=== PATIENT | female | born 1955 | race Caucasian/White ===

== ENCOUNTER 2016-08-11 04:25 | Emergency (ER) ==
[2016-08-11] MEDS ORDERED: DUONEB NEB STA (04:39)
[2016-08-11 04:40] VITALS: BP 110/67; TEMP 98.3; BMI 21.1
--- NOTE | 2016-08-11 04:48 | ED.PDOC ---
General ED Provider: Dr. MARLEN FLOOD Chief Complaint: Cough Stated Complaint: Productive cough of green phlegm for 4 days. Chills. Temperature 98.2 at home. States, "I just feel bad like I have something terrible". Time Seen by Physician: 04:46 Mode of Arrival: Walk-In Information Source: Patient Exam Limitations: No limitations [facility] Nursing and Triage Documentation Reviewed and Agree: Yes Respiratory Complaint Exam - Respiratory Complaint/Exam Onset/Duration: 2 days Symptoms Are: Still present Timing: Constant Initial Severity: Moderate Current Severity: Moderate Location: Chest Character: Reports: Non-productive cough Aggravating: Reports: URI, Passive smoke exposure (smoking ), Weather Alleviating: Reports: None Associated Signs and Symptoms: Reports: URI. Denies: Rapid breathing, Dyspnea, Fever, Chills, Chest pain, Pleuritic chest pain, Wheezing, Hemoptysis, Dizziness , Calf pain, Calf swelling, Edema, Nasal congestion, Hoarseness, Sinus discomfort, Vomiting, Sore throat, Weight loss, Decreased oral intake, Increased thirst, Increased appetite, Increased urination Cardiac Risk Factors: Reports: Smoking Home Oxygen Use: No Recent Stress Test: No Recent Echo/LV Function: No Current Antibiotic Use: No Current Asthma Medication Use: No Respiratory Distress: None Inadequate Respiratory Effort: No Dysphagia Present: No Stridor Present: No JVD Present: No Accessory Muscle Use: No Diminished Breath Sounds: No Sinus Tenderness: None Grunting Respirations: No Kussmaul Respirations: No Differential Diagnoses: URI Review of Systems - Review Of Systems Constitutional: Reports: No symptoms Eyes: Reports: No symptoms Ears, Nose, Mouth, Throat: Reports: No symptoms Respiratory: Reports: Cough, Short of air Cardiac: Reports: No symptoms GI: Reports: No symptoms : Reports: No symptoms Musculoskeletal: Reports: No symptoms Skin: Reports: No symptoms Neurological: Reports: Anxiety Endocrine: Reports: No symptoms Hematologic/Lymphatic: Reports: No symptoms All Other Systems: Reviewed and Negative Past Medical History - Past Medical History Endocrine: Reports: Dyslipidemia Cardiovascular: Reports: None Respiratory: Reports: None Hematological: Reports: Other (LUPUS) Gastrointestinal: Reports: GERD Genitourinary: Reports: None Neuro/Psych: Reports: Anxiety Musculoskeletal: Reports: None Cancer: Reports: None Last Menstrual Period: 20 years ago Other Pertinent Past Medical History: 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 Sx chol gerd anx lupus - Surgical History General Surgical History: Reports: Unknown - Family History Family History: Reports: Unknown - Social History Smoking Status: Current some day smoker (1/2 ppd ), Heavy tobacco smoker Hx Substance Use: No Alcohol Screening: None - Immunizations Tetanus Shot up to Date: Yes Physical Exam - Physical Exam Appearance: Ill-appearing, Thin Ill-appearing: Mild Eyes: GONZALES, EOMI, Conjunctiva clear ENT: Ears normal, Nose normal, Oropharynx normal Neck: Supple Respiratory: Airway patent, Breath sounds clear, Breath sounds equal, Breath sounds diminished, Respirations nonlabored Cardiovascular: RRR, Pulses normal, No rub, No murmur GI/: Soft, Nontender, No masses, Bowel sounds normal, No Organomegaly Musculoskeletal: Normal strength, ROM intact, No edema, No calf tenderness Skin: Warm, Dry, Normal color Neurological: Sensation intact, Motor intact, Reflexes intact, Cranial nerves intact, Alert, Oriented Psychiatric: Affect appropriate, Mood appropriate Interpretation - Radiology Interpretation Radiology Interpretation By: ED Physician Radiology Results: Negative Exam Interpreted: CXR - Electrician Rectifier Maintenance Rate: Normal Rhythm: Sinus Ectopy: None - EKG Interpretation Time of EKG #1: 05:03 Rate: Normal Rhythm: Sinus Ectopy: None Reserve: NL ST Segment: Normal Critical Care Note - Critical Care Note Total Time (mins): 0 Course - Course Orders, Labs, Meds: Orders Category Date Time Status EKG-(ED ONLY) Stat CARDIO 08/11/16 04:39 Ordered NEBULIZER TREATMENT Stat CARDIO 08/11/16 04:41 Ordered BLOOD CULTURE Stat LAB 08/11/16 04:39 Ordered CBC W/ AUTO DIFF Stat LAB 08/11/16 04:39 Ordered COMPREHENSIVE METABOLIC PANEL Stat LAB 08/11/16 04:39 Ordered LACTIC ACID Stat LAB 08/11/16 04:44 Ordered PROCALCITONIN Stat LAB 08/11/16 Ordered PT WITH INR Stat LAB 08/11/16 04:59 Ordered TROPONIN I Stat LAB 08/11/16 04:39 Ordered Azithromycin [Zithromax] MEDS 08/11/16 05:06 Stat 500 mg PO ONCE STA Hydrocortisone Sod Succ/Pf [Solu-Cortef 100 mg] MEDS 08/11/16 05:05 Stat 100 mg IM ONCE STA Ipratropium/Albuterol Neb [Duoneb] MEDS 08/11/16 04:39 Discontinued 1 vial NEB ONCE STA CHEST, 2 VIEWS PA & LAT Stat RADS 08/11/16 04:39 Taken Medications Discontinued Medications Generic Name Dose Route Start Last Admin Trade Name Sal PRN Reason Stop Dose Admin Albuterol/Ipratropium 1 vial 08/11/16 04:39 08/11/16 05:01 Duoneb NEB 08/11/16 04:40 1 vial ONCE STA Administration Hydrocortisone Sodium Succinate 100 mg 08/11/16 05:05 Solu-Cortef 100 Mg IM 08/11/16 05:06 ONCE STA Vital Signs: Temp Pulse Resp BP Pulse Ox 08/11/16 04:27 98.3 F 104 H 20 110/67 96 Departure - Departure Time of Disposition: 05:10 Disposition: HOME SELF-CARE Discharge Problem: Acute bronchitis Qualifiers: Bronchitis organism: other organism Qualifier Code: (J20.8) Acute bronchitis due to other specified organisms Instructions: Acute Bronchitis (ED) Condition: Fair Pt referred to PMD for follow-up: Yes Additional Instructions: Quit smoking Take medications as prescribed Please call your Family Physician as soon as possible to schedule a follow-up appointment. Prescriptions: Albuterol Sulfate [Proair Hfa] 2 puff IH Q6H PRN #1 puff PRN Reason: shortness of breath or wheezin Azithromycin [Zithromax] 250 mg PO DIRECTED #6 tablet Methylprednisolone [Medrol Dosepak] 4 mg PO DIRECTED #1 pkg Allergies/Adverse Reactions: Allergies codeine Allergy (Severe, Verified 08/11/16 04:39) sick to stomach meperidine HCl [From Demerol] Allergy (Severe, Verified 08/11/16 04:39) pt unsure of problems Sulfa (Sulfonamide Antibiotics) Allergy (Severe, Verified 08/11/16 04:39) itch and rash metoclopramide HCl [From Reglan] Allergy (Mild, Verified 08/11/16 04:39) made stomach worse, didn't help Penicillins Adverse Reaction (Verified 08/11/16 04:39) Home Medications: Ambulatory Orders Folic Acid 1 mg PO DAILY 11/27/15 [place]-3 Acid Ethyl Esters [Lovaza] 1 cap PO DAILY 11/27/15 Oxycodone HCl [Oxycontin] 10 mg PO Q12HR 11/27/15 Pravastatin Sodium [Pravachol] 20 mg PO DAILY 11/27/15 Tizanidine HCl [Zanaflex] 8 mg PO BEDTIME 11/27/15 Gabapentin 300 mg PO d 02/05/16 Gabapentin 600 mg PO BEDTIME 02/05/16 Ramipril 5 mg PO DAILY 02/07/16 Sertraline HCl [Zoloft] 100 mg PO DAILY #30 03/12/16 Oxycodone HCl/Acetaminophen [Percocet 10-325 Mg Tablet] 1 each PO QID 06/04/16 Albuterol Sulfate [Proair Hfa] 2 puff IH Q6H PRN #1 puff 08/11/16 Azithromycin [Zithromax] 250 mg PO DIRECTED #6 tablet 08/11/16 Methylprednisolone [Medrol Dosepak] 4 mg PO DIRECTED #1 pkg 08/11/16 Disposition Discussed With: Patient
[2016-08-11] MEDS ORDERED: SOLU-CORTEF 100 MG IM STA (05:05)
[2016-08-11] MEDS ORDERED: ZITHROMAX PO STA (05:06)
--- NOTE | 2016-08-11 07:22 | DI ---
EXAM: Two views of the chest. History: Cough. Comparison: Chest radiograph 08/24/2011 Findings: Heart size is normal. Atherosclerotic vascular calcifications. No focal consolidation. No appreciable pleural fluid and no pneumothorax. No acute osseous abnormalities. Impression: No acute cardiopulmonary process.
== END 2016-08-11 05:41 | disposition home or self-care (01) ==
LOC: ED 04:25
DX: J20.9 Acute bronchitis, unspecified (principal); F17.210 Nicotine dependence, cigarettes, uncomplicated; Z79.899 Other long term (current) drug therapy
CPT/HCPCS: 93005; 93010; 94640; 99283

== ENCOUNTER 2016-08-27 09:12 | Outpatient (CLI) | payer OTHER ==
[2016-08-27 13:34] LABS: PROTHROMBIN TIME 15.3 SEC (9.3-11.0)
[2016-08-27 13:40] LABS: BASOPHILS % (AUTO) 0.7 % (0.0-3.0); EOSINOPHILS # (AUTO) 0.1 K/ul (0.0-0.7); EOSINOPHILS % (AUTO) 1.4 % (0.0-7.0); HEMATOCRIT 36.4 % (37.0-47.0); HEMOGLOBIN 12.1 g/dl (12.0-16.0); LYMPHOCYTES # (AUTO) 1.4 K/uL (0.60-3.4); MEAN CORPUSCULAR HEMOGLOBIN 30.3 pg (27.0-31.0); MEAN CORPUSCULAR HGB CONC 33.2 (31.8-35.4); MONOCYTES # (AUTO) 0.4 K/uL (0.4-2.0); MONOCYTES % (AUTO) 8.6 (0-10); NEUTROPHILS # (AUTO) 2.5 K/ul (2.0-6.9); NEUTROPHILS % (AUTO) 57.3; PLATELET COUNT 144 10^3/uL (140-440); WHITE BLOOD COUNT 4.41 K/ul (4.6-10.2)
== END 2016-08-27 09:13 | disposition home or self-care (01) ==
LOC: LAB 09:12
PROVIDERS: ATTEND Nurse Practitioner Family
DX: D70.9 Neutropenia, unspecified (principal); E05.90 Thyrotoxicosis, unspecified without thyrotoxic crisis or storm; Z86.718 Personal history of other venous thrombosis and embolism
CPT/HCPCS: 36415; 84443; 85025; 85610

== ENCOUNTER 2016-09-29 04:08 | Emergency (ER) ==
[2016-09-29 04:32] VITALS: BP 98/63; TEMP 99.1; BMI 21.3
--- NOTE | 2016-09-29 05:39 | ED.PDOC ---
General Stated Complaint: im coughing up stuff Time Seen by Physician: 04:20 Mode of Arrival: Walk-In Information Source: Patient Exam Limitations: No limitations Nursing and Triage Documentation Reviewed and Agree: Yes <SWEETIE BAEZ - Last Filed: 09/29/16 06:36> <CARLOS MUÑOZ JR - Last Filed: 09/29/16 08:06> ED Provider: Dr. CARLOS MUÑOZ JR Chief Complaint: Cough [facility] Respiratory Complaint Exam - Respiratory Complaint/Exam Onset/Duration: several weeks Symptoms Are: Still present Timing: Intermittent Initial Severity: Mild Current Severity: Moderate Location: Chest Character: Reports: Productive cough Aggravating: Reports: URI Alleviating: Reports: Spontaneous resolution Associated Signs and Symptoms: Reports: Fever, URI, Nasal congestion. Denies: Rapid breathing, Dyspnea, Chills, Chest pain, Pleuritic chest pain, Wheezing, Hemoptysis, Dizziness, Calf pain, Calf swelling, Edema, Hoarseness, Sinus discomfort, Vomiting, Sore throat, Weight loss, Decreased oral intake, Increased thirst, Increased appetite, Increased urination Related History: Reports: Similar episode History of Healthcare-Acquired Pneumonia: No Pulmonary Embolism Risk Factors: Smoking Cardiac Risk Factors: Reports: Smoking Pseudomonas Risk Factors: Reports: Chronic Lung Disease Tuberculosis Risk Factors: Reports: Smoking Status Asthmaticus Risk Factors: Reports: None Home Oxygen Use: No Recent Stress Test: No Recent Echo/LV Function: No Current Antibiotic Use: No Current Asthma Medication Use: No Respiratory Distress: None Inadequate Respiratory Effort: No Dysphagia Present: No Stridor Present: No JVD Present: No Accessory Muscle Use: No Retractions: Not Present Diminished Breath Sounds: No Sinus Tenderness: None Grunting Respirations: No Kussmaul Respirations: No Differential Diagnoses: Pneumonia, Bronchitis Non-Traumatic Chest Pain Syncope: EKG Performed <SWEETIE BAEZ - Last Filed: 09/29/16 06:36> Review of Systems - Review Of Systems Constitutional: Reports: No symptoms Eyes: Reports: No symptoms Ears, Nose, Mouth, Throat: Reports: No symptoms Respiratory: Reports: Cough Cardiac: Reports: No symptoms GI: Reports: No symptoms : Reports: No symptoms Musculoskeletal: Reports: No symptoms Skin: Reports: No symptoms Neurological: Reports: No symptoms Endocrine: Reports: No symptoms Hematologic/Lymphatic: Reports: No symptoms All Other Systems: Reviewed and Negative <FAIZANRENATOSWEETIE - Last Filed: 09/29/16 06:36> Past Medical History - Past Medical History Endocrine: Reports: Dyslipidemia Cardiovascular: Reports: None Respiratory: Reports: None Hematological: Reports: Other (LUPUS) Gastrointestinal: Reports: GERD Genitourinary: Reports: None Neuro/Psych: Reports: Anxiety Musculoskeletal: Reports: None Cancer: Reports: None Last Menstrual Period: post menopausal Other Pertinent Past Medical History: 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 Sx chol gerd anx lupus - Surgical History General Surgical History: Reports: Unknown - Family History Family History: Reports: Unknown - Social History Smoking Status: Current some day smoker, Heavy tobacco smoker Hx Substance Use: No Alcohol Screening: None - Immunizations Tetanus Shot up to Date: Yes <BUSTERJOSESWEETIE Last Filed: 09/29/16 06:36> Physical Exam - Physical Exam Appearance: Well-appearing Eyes: GONZALES, EOMI, Conjunctiva clear ENT: Ears normal, Nose normal, Oropharynx normal Neck: Supple Respiratory: Crackles, Rhonchi Cardiovascular: RRR, Pulses normal, No rub, No murmur GI/: Soft, Nontender, No masses, Bowel sounds normal, No Organomegaly Musculoskeletal: Normal strength, ROM intact, No edema, No calf tenderness Skin: Warm Neurological: Sensation intact Psychiatric: Affect appropriate, Mood appropriate <SASHASWEETIE - Last Filed: 09/29/16 06:36> Physician Notification - Case Discussed Physician Notified: dr muñoz Time of Notification: 07:00 <SASHASWEETIE - Last Filed: 09/29/16 06:36> Critical Care Note - Critical Care Note Total Time (mins): 5 <CARLOS MUÑOZ JR - Last Filed: 09/29/16 08:06> Course - Course Hematology/Chemistry: 09/29/16 05:30 09/29/16 05:30 <SASHASWEETIE - Last Filed: 09/29/16 06:36> - Course Hematology/Chemistry: 09/29/16 05:30 09/29/16 05:30 <CARLOS MUÑOZ JR - Last Filed: 09/29/16 08:06> - Course Orders, Labs, Meds: Lab Review 09/29/16 09/29/16 09/29/16 05:25 05:30 05:45 WBC 6.14 RBC 4.11 L Hgb 12.4 Hct 37.4 MCV 91.0 MCH 30.2 MCHC 33.2 RDW Coeff of Brody 13.7 Plt Count 230 Immature Gran % (Auto) 0.2 Neut % (Auto) 70.2 Lymph % (Auto) 22.5 [place] % (Auto) 5.5 Eos % (Auto) 1.1 Baso % (Auto) 0.5 Immature Gran # (Auto) 0.0 Neut # 4.3 Lymph # 1.4 [place] # 0.3 L Eos # 0.1 Baso # 0.0 PT 22.3 H INR 2.17 D-Dimer (Manual) 1617.79 Sodium 139 Potassium 4.1 Chloride 105 Carbon Dioxide 26 Anion Gap 12.1 BUN 8 Creatinine 0.62 Estimated GFR (MDRD) 97.00 BUN/Creatinine Ratio 12.90 Glucose 101 Calcium 9.2 Total Bilirubin 0.27 AST 22 ALT 17 Alkaline Phosphatase 92 Total Creatine Kinase 58 Troponin I < 0.0100 B-Natriuretic Peptide 92 Total Protein 7.7 Albumin 3.5 Globulin 4.2 Albumin/Globulin Ratio 0.83 Urine Color Yellow Urine Clarity Clear Urine pH 6.0 Ur Specific [place] 1.010 Urine Protein Negative Urine Glucose (UA) Negative Urine Ketones Negative Urine Blood Trace-lysed Urine Nitrite Negative Urine Bilirubin Negative Urine Urobilinogen 0.2 Ur Leukocyte Esterase Negative Urine Microscopic RBC 2-5 Ur Squamous Epith Cells 0-2 Influenza A (Rapid) Negative Influenza B (Rapid) Negative Orders Category Date Time Status EKG-(ED ONLY) Stat CARDIO 09/29/16 05:10 Completed NPO REMINDER: IMAGING ONCE CARE 09/29/16 06:21 Completed IV [ED IV/MEDIPORT/POWERPORT] .ONCE EMERGENCY 09/29/16 06:29 Active B-TYPE NATRIURETIC PEPTIDE Stat LAB 09/29/16 05:30 Completed BLOOD CULTURE Stat LAB 09/29/16 05:30 Received CBC W/ AUTO DIFF Stat LAB 09/29/16 05:30 Completed COMPREHENSIVE METABOLIC PANEL Stat LAB 09/29/16 05:30 Completed CREATINE KINASE Stat LAB 09/29/16 05:30 Completed D-DIMER Stat LAB 09/29/16 05:30 Completed MOLECULAR GROUP A STREP Stat LAB 09/29/16 05:25 Results PT WITH INR Stat LAB 09/29/16 05:30 Completed RAPID FLU A/B Stat LAB 09/29/16 05:25 Completed STREP SCREEN Stat LAB 09/29/16 05:25 Results TROPONIN I Stat LAB 09/29/16 05:30 Completed URINALYSIS C & S IF INDICATED Stat LAB 09/29/16 05:45 Completed 0.9 % Sodium Chloride [Saline Flush] MEDS 09/29/16 06:29 Active 1 syr IVF PRN PRN Methylprednisolone Sod Succ/Pf [Solu-Medrol 125 mg] MEDS 09/29/16 08:03 Stat 125 mg IM ONCE STA Sodium Chloride 0.9% [Sodium Chloride] 1,000 ml MEDS 09/29/16 06:30 Active IV 100 mls/hr CT CHEST PE PROTOCOL Stat RADS 09/29/16 06:[address] CHEST W/O CONTRAST Stat RADS 09/29/16 05:08 Completed ULTRASOUND VENOUS SCAN SEGUNDO LEGS [U/S VENOUS SCAN SEGUNDO RADS 09/29/16 06:28 Completed LEGS] Stat Medications Generic Name Dose Route Start Last Admin Trade Name Freq PRN Reason Stop Dose Admin Sodium Chloride 1,000 mls @ 100 mls/hr 09/29/16 06:30 09/29/16 07:53 Sodium Chloride IV 09/29/16 16:29 Not Given .Q10H STA Sodium Chloride 1 syr 09/29/16 06:29 09/29/16 06:31 Saline Flush IVF 1 syr PRN PRN Administration To flush IV Discontinued Medications Generic Name Dose Route Start Last Admin Trade Name Freq PRN Reason Stop Dose Admin Methylprednisolone Sodium Succinate 125 mg 09/29/16 08:03 Solu-Medrol 125 Mg IM 09/29/16 08:04 ONCE STA Vital Signs: Temp Pulse Resp BP Pulse Ox 09/29/16 04:17 99.1 F 99 H 20 98/63 92 L Departure <SWEETIE BAEZ - Last Filed: 09/29/16 06:36> - Departure Time of Disposition: 08:05 Pt referred to PMD for follow-up: Yes <CARLOS MUÑOZ JR - Last Filed: 09/29/16 08:06> - Departure Disposition: HOME SELF-CARE Discharge Problem: Bronchitis Instructions: Acute Bronchitis (ED), How to Stop Smoking (ED) Condition: Good Additional Instructions: no blood clot seen on lung scans no pneumonia antibiotic for continuing symptoms antibiotic until gone call PMD today about rechecking INR while on antibiotic continue coumadin as directed do not take coumadin today steroid for inflammation Prescriptions: Azithromycin [Zithromax] 250 mg PO DIRECTED #6 tablet Allergies/Adverse Reactions: Allergies codeine Allergy (Severe, Verified 09/29/16 05:28) sick to stomach meperidine HCl [From Demerol] Allergy (Severe, Verified 09/29/16 05:28) pt unsure of problems Sulfa (Sulfonamide Antibiotics) Allergy (Severe, Verified 09/29/16 05:28) itch and rash metoclopramide HCl [From Reglan] Allergy (Mild, Verified 09/29/16 05:28) made stomach worse, didn't help Penicillins Adverse Reaction (Verified 09/29/16 05:28) Home Medications: Ambulatory Orders Folic Acid 1 mg PO DAILY 11/27/15 Pravastatin Sodium [Pravachol] 20 mg PO DAILY 11/27/15 Gabapentin 300 mg PO BID 02/05/16 Sertraline HCl [Zoloft] 100 mg PO DAILY #30 03/12/16 Oxycodone HCl/Acetaminophen [Percocet 10-325 Mg Tablet] 1 each PO QID PRN Albuterol Sulfate [Proair Hfa] 2 puff IH Q6H PRN #1 puff 08/11/16 Azithromycin [Zithromax] 250 mg PO DIRECTED #6 tablet 08/11/16 Quetiapine Fumarate [Seroquel Xr] 600 mg PO BEDTIME #30 08/27/16 Aspirin [Aspirin EC] 81 mg PO DIRECTED 09/29/16 Azithromycin [Zithromax] 250 mg PO DIRECTED #6 tablet 09/29/16 Hydroxychloroquine Sulfate [Plaquenil] 200 mg pe PO DAILY 09/29/16 Melatonin 10 mg PO BEDTIME 09/29/16 Risperidone [Risperdal] 1 mg PO DAILY 09/29/16 Addendum entered and electronically signed by CARLOS MUÑOZ JR, MD 10/05/16 10:26: Lupus Dyspnea with positive D Dimer cough negative pulmonary angiogram Addendum entered and electronically signed by CARLOS MUÑOZ JR, MD 10/12/16 13:18: Addendum entered and electronically signed by CARLOS MUÑOZ JR, MD 05/01/17 13:19: 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
[2016-09-29 05:41] LABS: BASOPHILS % (AUTO) 0.5 % (0.0-3.0); EOSINOPHILS # (AUTO) 0.1 K/ul (0.0-0.7); EOSINOPHILS % (AUTO) 1.1 % (0.0-7.0); HEMATOCRIT 37.4 % (37.0-47.0); HEMOGLOBIN 12.4 g/dl (12.0-16.0); IMMATURE GRANULOCYTE % (AUTO) 0.2 % (0.0-5.0); LYMPHOCYTES # (AUTO) 1.4 K/uL (0.60-3.4); LYMPHOCYTES % (AUTO) 22.5 (10.0-50.0); MEAN CORPUSCULAR HEMOGLOBIN 30.2 pg (27.0-31.0); MEAN CORPUSCULAR HGB CONC 33.2 (31.8-35.4); MONOCYTES # (AUTO) 0.3 K/uL (0.4-2.0); MONOCYTES % (AUTO) 5.5 (0-10); NEUTROPHILS # (AUTO) 4.3 K/ul (2.0-6.9); NEUTROPHILS % (AUTO) 70.2; PLATELET COUNT 230 10^3/uL (140-440); RED BLOOD COUNT 4.11 10^6/ul (4.20-5.40); WHITE BLOOD COUNT 6.14 K/ul (4.6-10.2)
--- NOTE | 2016-09-29 05:45 | CT ---
EXAM: CT scan thorax without contrast HISTORY: Cough COMPARISON: CT scan thorax 09/05/2011 FINDINGS: Contiguous axial images obtained through the thorax without contrast utilizing 5-mm colli mation. Sagittal and coronal reconstructions were imaged and reviewed.. The thoracic inlet is unre markable. There are pre tracheal subcentimeter lymph nodes. The ascending aorta is ectatic measurin g 3.5 cm. The descending thoracic aorta the same level measures 2.2 cm.. The heart is normal in siz e without pericardial effusion. Moderate coronary artery calcification.. There are emphysematous c hanges with scattered bullae and blebs.. There is no evidence of infiltrate or effusion. There are benign granulomatous changes.. There has been prior cholecystectomy.. There is old healed sternal fracture. Moderate degenerative changes are seen within the mid dorsal spine. IMPRESSION: Normal-sized cardiac silhouette with coronary artery calcification. Ectatic ascending aorta. Chronic obstructive pulmonary disease. Status post cholecystectomy
[2016-09-29 05:54] LABS: BILIRUBIN,URINE Negative (NEGATIVE); KETONES,URINE Negative (NEGATIVE); LEUKOCYTE ESTERASE ,URINE Negative (NEGATIVE); NITRITE,URINE Negative (NEGATIVE); PROTEIN,URINE Negative (NEGATIVE); URINE, BLOOD Trace-lysed (NEGATIVE)
[2016-09-29 05:54] LABS: FLU INTERNAL QC INTERNAL QC VALID; RAPID FLU A NEGATIVE (NEGATIVE); RAPID FLU B NEGATIVE (NEGATIVE)
[2016-09-29 06:03] LABS: ADD URINE MICROSCOPIC YES
[2016-09-29 06:05] LABS: ALANINE AMINOTRANSFERASE 17 U/L (12-78); ALBUMIN 3.5 g/dL (3.4-5.0); ALBUMIN/GLOBULIN RATIO 0.83; ALKALINE PHOSPHATASE 92 U/L (53-141); ANION GAP 12.1; ASPARTATE AMINO TRANSFERASE 22 U/L (15-37); BILIRUBIN,TOTAL 0.27 mg/dL (0.00-1.20); BLOOD UREA NITROGEN 8 mg/dL (7-18); CALCIUM 9.2 mg/dL (8.2-10.2); CARBON DIOXIDE 26 mmol/L (23-31); CHLORIDE 105 mmol/L (98-107); CREATINE KINASE 58 U/L; CREATININE 0.62 mg/dL (0.60-1.30); GLUCOSE 101 mg/dL (82-115); POTASSIUM 4.1 mmol/L (3.5-5.10); SODIUM 139 mmol/L (136-145); TOTAL PROTEIN 7.7 g/dL (5.8-8.1)
[2016-09-29 06:30] LABS: PROTHROMBIN TIME 22.3 SEC (9.3-11.0)
[2016-09-29] MEDS ORDERED: SODIUM CHLORIDE 1,000 ML IV STA (06:30)
--- NOTE | 2016-09-29 07:14 | CT ---
EXAM: CTA of the chest. History: Cough, positive D-dimer. Comparison: Chest CT 09/29/2016 Technique: Multiplanar CT images through the thorax were obtained following administration of IV co ntrast. MIP images and 3-D reconstructions were also acquired. Findings: Heart is upper limits of normal in size. Great vessels are unremarkable. No pathologica lly enlarged thoracic lymph nodes. Emphysema. No consolidated pneumonia. No suspicious lung nodul es or lung masses. No pleural fluid and no pneumothorax. There is some mucus plugging within the l eft greater than right lower lobe bronchi. No pulmonary arterial filling defects. Within the visualized upper abdomen, status post cholecystectomy. The visualized osseous structures unchanged with no acute osseous abnormalities identified. Impression: 1. No pulmonary embolism. 2. Left greater than right lower lobe mucous plugging with no consolidated pneumonia. 3. Emphysema.
--- NOTE | 2016-09-29 07:56 | US ---
EXAM: Bilateral lower extremity venous doppler. HISTORY: Previous deep vein thrombosis. Positive D-dimer. On anticoagulation. COMPARISON: None available. TECHNIQUE: Multiple grayscale and color doppler images were obtained. FINDINGS: There is normal flow, compressibility and augmentation of flow within the right and left common femoral, greater saphenous, profunda, femoral, popliteal, posterior tibial, anterior tibial a nd peroneal veins. IMPRESSION: No evidence for right or left lower extremity deep vein thrombosis at the levels examined.
[2016-09-29] MEDS ORDERED: SOLU-MEDROL 125 MG IM STA (08:03)
== END 2016-09-29 08:32 | disposition home or self-care (01) ==
LOC: ED 04:08
DX: J20.9 Acute bronchitis, unspecified (principal); E78.5 Hyperlipidemia, unspecified; R06.00 Dyspnea, unspecified; M32.9 Systemic lupus erythematosus, unspecified; R79.1 Abnormal coagulation profile; F17.210 Nicotine dependence, cigarettes, uncomplicated; Z86.718 Personal history of other venous thrombosis and embolism; Z79.899 Other long term (current) drug therapy; Z79.01 Long term (current) use of anticoagulants; Z98.890 Other specified postprocedural states
CPT/HCPCS: 36415; 80053; 81001; 82550; 83880; 84484; 85025; 85379; 85610; 87040; 87651; 87804; 87880; 93005; 93010; 96372; 99283

== ENCOUNTER 2016-11-15 07:43 | Outpatient (CLI) ==
[2016-11-15 14:43] VITALS: BMI 23.6
== END 2016-11-15 07:44 | disposition home or self-care (01) ==
LOC: AMBL 07:43
PROVIDERS: ATTEND Emergency Medicine
DX: I95.9 Hypotension, unspecified (principal); R42 Dizziness and giddiness

== ENCOUNTER 2016-11-15 07:55 | Inpatient (IN) ==
[2016-11-15] MEDS ORDERED: SODIUM CHLORIDE 1,000 ML IV STA (08:03)
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
--- NOTE | 2016-11-15 08:26 | DI ---
EXAM: Single view of the chest. History: Chest pain. Comparison: Chest radiograph 08/11/2016 Findings: Heart size is normal. No focal consolidation. No appreciable pleural fluid and no pneum othorax. Atherosclerotic vascular calcifications of the aortic knob. No acute osseous abnormalitie s. Impression: No acute cardiopulmonary process.
[2016-11-15 08:29] LABS: BASOPHILS % (AUTO) 0.4 % (0.0-3.0); EOSINOPHILS # (AUTO) 0.1 K/ul (0.0-0.7); EOSINOPHILS % (AUTO) 1.5 % (0.0-7.0); HEMOGLOBIN 12.1 g/dl (12.0-16.0); IMMATURE GRANULOCYTE % (AUTO) 0.2 % (0.0-5.0); LYMPHOCYTES # (AUTO) 1.3 K/uL (0.60-3.4); MEAN CORPUSCULAR HEMOGLOBIN 30.9 pg (27.0-31.0); MEAN CORPUSCULAR HGB CONC 33.6 (31.8-35.4); MEAN CORPUSCULAR VOLUME 91.8 fl (81.0-99.0); MONOCYTES # (AUTO) 0.3 K/uL (0.4-2.0); MONOCYTES % (AUTO) 6.5 (0-10); NEUTROPHILS # (AUTO) 3.1 K/ul (2.0-6.9); NEUTROPHILS % (AUTO) 65.4; PLATELET COUNT 199 10^3/uL (140-440); RED BLOOD COUNT 3.92 10^6/ul (4.20-5.40)
[2016-11-15 08:51] LABS: PROTHROMBIN TIME 28.2 SEC (9.3-11.0)
[2016-11-15 08:55] LABS: ALBUMIN 3.3 g/dL (3.4-5.0); ALBUMIN/GLOBULIN RATIO 1.1; ANION GAP 12.6; BILIRUBIN,TOTAL 0.26 mg/dL (0.00-1.20); BUN/CREATININE RATIO 11.02; CALCIUM 8.9 mg/dL (8.2-10.2); CREATININE 1.27 mg/dL (0.60-1.30); POTASSIUM 3.6 mmol/L (3.5-5.10); TOTAL PROTEIN 6.3 g/dL (5.8-8.1); TROPONIN I 0.017 ng/ml (0.0000-0.4000)
[2016-11-15] MEDS ORDERED: PERCOCET 10-325 PO PRN (09:21)
[2016-11-15 09:28] LABS: OCCULT BLOOD INTERNAL QC 1 INTERNAL QC VALID; OCCULT BLOOD SAMPLE 1 NEGATIVE (NEGATIVE)
[2016-11-15] MEDS ORDERED: SODIUM CHLORIDE 1,000 ML IV SCH (09:30)
[2016-11-15 11:46] LABS: BILIRUBIN,URINE Negative (NEGATIVE); KETONES,URINE Negative (NEGATIVE); LEUKOCYTE ESTERASE ,URINE 1+ (NEGATIVE); NITRITE,URINE Negative (NEGATIVE); PROTEIN,URINE Negative (NEGATIVE); URINE, BLOOD Negative (NEGATIVE)
[2016-11-15 11:48] LABS: ADD URINE MICROSCOPIC YES; BACTERIA,URINE 2+ (NOT PRESENT)
[2016-11-15] MEDS: PERCOCET 10-325 PO PRN (13:52)
[2016-11-15 14:43] VITALS: BMI 23.6
[2016-11-15] MEDS ORDERED: ZOFRAN ODT PO PRN (15:22)
[2016-11-15] MEDS ORDERED: NON-FORMULARY MEDICATION (Ondansetron Hcl [Zofran] 8 MG) PO PRN (15:32)
[2016-11-15] MEDS ORDERED: ZOFRAN TAB ONE (15:34)
[2016-11-15] MEDS: SODIUM CHLORIDE 1,000 ML IV SCH ×2 (15:37→21:14)
[2016-11-15] MEDS ORDERED: NON-FORMULARY MEDICATION (Omeprazole Magnesium [Prilosec Otc] 20 MG) PO SCH ×22 (17:00)
[2016-11-15] MEDS ORDERED: COUMADIN PO SCH (17:00)
[2016-11-15 17:01] LABS: CREATINE KINASE 46 U/L
[2016-11-15] MEDS: PRILOSEC PO SCH (17:34)
[2016-11-15] MEDS: PLETAL PO SCH (20:06)
[2016-11-15] MEDS: NEURONTIN PO SCH (20:06)
[2016-11-15] MEDS: OXYCONTIN PO SCH (20:07)
[2016-11-15] MEDS ORDERED: QUETIAPINE FUMARATE 600 MG PO SCH (21:00)
[2016-11-15] MEDS ORDERED: DESYREL PO SCH (21:00)
[2016-11-15] MEDS ORDERED: NON-FORMULARY MEDICATION (Trazodone Hcl [Trazodone Hcl] 200 MG) PO SCH (21:00)
[2016-11-15] MEDS ORDERED: NON-FORMULARY MEDICATION (Melatonin [Melatonin] 10 MG) PO SCH (21:00)
[2016-11-15] MEDS ORDERED: SEROQUEL PO SCH (21:00)
[2016-11-15 23:37] LABS: CREATINE KINASE 44 U/L
[2016-11-16 00:03] LABS: OCCULT BLOOD INTERNAL QC 2 INTERNAL QC VALID; OCCULT BLOOD INTERNAL QC 3 INTERNAL QC VALID; OCCULT BLOOD SAMPLE 2 NO SPECIMEN RECEIVED (NEGATIVE); OCCULT BLOOD SAMPLE 3 NO SPECIMEN RECEIVED (NEGATIVE)
[2016-11-16] MEDS: SODIUM CHLORIDE 1,000 ML IV SCH (04:31)
[2016-11-16 04:36] LABS: BASOPHILS % (AUTO) 0.6 % (0.0-3.0); EOSINOPHILS # (AUTO) 0.1 K/ul (0.0-0.7); EOSINOPHILS % (AUTO) 4.1 % (0.0-7.0); HEMATOCRIT 34.2 % (37.0-47.0); HEMOGLOBIN 11.3 g/dl (12.0-16.0); IMMATURE GRANULOCYTE % (AUTO) 0.3 % (0.0-5.0); LYMPHOCYTES # (AUTO) 1.3 K/uL (0.60-3.4); LYMPHOCYTES % (AUTO) 40.3 (10.0-50.0); MEAN CORPUSCULAR HEMOGLOBIN 30.1 pg (27.0-31.0); MEAN CORPUSCULAR VOLUME 91.2 fl (81.0-99.0); MONOCYTES # (AUTO) 0.4 K/uL (0.4-2.0); MONOCYTES % (AUTO) 11.6 (0-10); NEUTROPHILS # (AUTO) 1.4 K/ul (2.0-6.9); NEUTROPHILS % (AUTO) 43.1; PLATELET COUNT 177 10^3/uL (140-440); RED BLOOD COUNT 3.75 10^6/ul (4.20-5.40); WHITE BLOOD COUNT 3.18 K/ul (4.6-10.2)
[2016-11-16 04:47] LABS: PROTHROMBIN TIME 29.4 SEC (9.3-11.0)
[2016-11-16 04:57] LABS: ALBUMIN 2.6 g/dL (3.4-5.0); ALBUMIN/GLOBULIN RATIO 0.93; ANION GAP 9.5; BILIRUBIN,TOTAL 0.24 mg/dL (0.00-1.20); BUN/CREATININE RATIO 11.86; CALCIUM 8.2 mg/dL (8.2-10.2); CREATININE 0.59 mg/dL (0.60-1.30); POTASSIUM 4.5 mmol/L (3.5-5.10); TOTAL PROTEIN 5.4 g/dL (5.8-8.1)
[2016-11-16] MEDS: PRILOSEC PO SCH (05:32)
[2016-11-16] MEDS ORDERED: ZOFRAN TAB PO PRN (06:40)
[2016-11-16] MEDS: OXYCONTIN PO SCH (08:59)
[2016-11-16] MEDS: NEURONTIN PO SCH (08:59)
[2016-11-16] MEDS ORDERED: FOLIC ACID PO SCH (09:00)
[2016-11-16] MEDS ORDERED: HYDROXYCHLOROQUINE SULFATE 200 MG PO SCH (09:00)
[2016-11-16] MEDS ORDERED: NON-FORMULARY MEDICATION (Sertraline Hcl [Zoloft] 150 MG) PO SCH (09:00)
[2016-11-16] MEDS ORDERED: PLAQUENIL PO SCH (09:00)
[2016-11-16] MEDS ORDERED: NON-FORMULARY MEDICATION (Warfarin Sodium [Coumadin] 6 MG) PO SCH ×22 (09:00)
[2016-11-16] MEDS ORDERED: PRAVACHOL PO SCH (09:00)
[2016-11-16] MEDS ORDERED: NON-FORMULARY MEDICATION (Methylphenidate Hcl [Ritalin] 20 MG) PO SCH ×22 (09:00)
[2016-11-16] MEDS ORDERED: ALTACE PO SCH (09:00)
[2016-11-16] MEDS ORDERED: ZOLOFT PO SCH (09:00)
[2016-11-16] MEDS: PLETAL PO SCH (09:00)
[2016-11-16] MEDS ORDERED: RAMIPRIL 5 MG PO SCH (09:00)
--- NOTE | 2016-11-16 09:14 | PCM.PROG ---
Attending Provider: ATTENDING PROVIDER: Dr. TORY SMALLS DATE OF SERVICE: 11/16/16 SUBJECTIVE: This 61 year old WHITE/ F was hospitalized 11/15/16 with near syncope and hypotension, systolic blood pressure 65. The patient is feeling better, not dizzy. Blood pressure is normal. The patient says she is feeling better and wants to go home. REVIEW OF SYSTEMS: CONSTITUTIONAL: No fever, no chills. ENDOCRINE: No weight loss or weight gain. HEENT: No sinus drainage, no sore throat. CVS: No angina symptoms. No CHF symptoms. No palpitations. No atypical chest pain for CAD. No shortness of breath. RESPIRATORY: No cough, no hemoptysis. GI: No melena. No abdominal pain. No nausea, no vomiting. : No hematuria. No polyuria. SKIN: No rash. No wounds. MUSCULOSKELETAL: No pain. 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 No headache. No double vision. PSYCHIATRIC: Not anxious; no depression. No suicidal thoughts. No homicidal thoughts. PHYSICAL EXAMINATION: GENERAL: Lying in bed in no distress. VITAL SIGNS: Temperature 99.1 F, Pulse 78, Respiratory Rate 20, BP 117/68, Pulse Ox 96% HEENT: Normocephalic, atraumatic. Mucosa is dry, pallor positive. NECK: No JVP, no carotid bruit. No lymphadenopathy. CARDIAC: S1, S2, no S3. Positive for systolic murmur. LUNGS: Clear to auscultation. ABDOMEN: Soft, non-tender. Bowel sounds active. No rigidity, guarding or CVA tenderness. EXTREMITIES: No clubbing, cyanosis or edema. NEUROLOGIC: Awake, alert and oriented x3. LYMPHATIC: No palpable lymph nodes SKIN: Not dry. Intact. MUSCULOSKELETAL: No joint swelling. LAB REVIEW: 11/16/16 04:33 11/16/16 04:33 11/16/16 04:33: WBC 3.18 L, RBC 3.75 L, Hgb 11.3 L, Hct 34.2 L, MCV 91.2, MCH 30.1, MCHC 33.0, RDW Coeff of Brody 13.7, Plt Count 177, Immature Gran % (Auto) 0.3, Neut % (Auto) 43.1, Lymph % (Auto) 40.3, [place] % (Auto) 11.6 H, Eos % (Auto ) 4.1, Baso % (Auto) 0.6, Immature Gran # (Auto) 0.0, Neut # 1.4 L, Lymph # 1.3 , [place] # 0.4, Eos # 0.1, Baso # 0.0, PT 29.4 H, INR 2.85, Sodium 141, Potassium 4.5, Chloride 111 H, Carbon Dioxide 25, Anion Gap 9.5, BUN 7, Creatinine 0.59 L D, Estimated GFR (MDRD) 103.00, BUN/Creatinine Ratio 11.86, Glucose 101, Calcium 8.2, Total Bilirubin 0.24, AST 17, ALT 12, Alkaline Phosphatase 66, Total Protein 5.4 L, Albumin 2.6 L, Globulin 2.8, Albumin/Globulin Ratio 0.93 11/15/16 23:05: Total Creatine Kinase 44, Troponin I < 0.0100 11/15/16 16:20: Total Creatine Kinase 46, Troponin I < 0.0100 11/15/16 11:00: Urine Color Yellow, Urine Clarity Clear, Urine pH 6.0, Ur Specific [place] <=1.005, Urine Protein Negative, Urine Glucose (UA) Negative, Urine Ketones Negative, Urine Blood Negative, Urine Nitrite Negative, Urine Bilirubin Negative, Urine Urobilinogen 0.2, Ur Leukocyte Esterase 1+, Urine Microscopic WBC 5-10, Ur Squamous Epith Cells 5-10, Urine Bacteria 2+ ASSESSMENT: 1. Near syncope, hypotensive shock most likely from medication (two different type of opioids) 2. History of hypertension 3. Dyslipidemia 4. Osteoarthritis 5. DJD spine 6. Sjogren's syndrome 7. Dyslipidemia 8. Osteoporosis PLAN: 1. Will see the patient back in the clinic in 2 to 3 days 2. Counseled the patient about counseled about multiple pain medication and side effects 3. Carotid ultrasound 4. Discharge home Plan and coordination of the patient's care discussed in the presence of Pig Casting Machine Operator and nurse. CONDITION: Stable SCRIBED BY: ANASTASIA BAEZ Route Sales Representative scribed while in presence of service performed by Dr. TORY SMALLS on 11/16/16 ([id number])
[2016-11-16] MEDS ORDERED: ASPIRIN EC PO SCH (09:21)
[2016-11-16 10:16] VITALS: BP 112/70; TEMP 98.6
[2016-11-16] MEDS: PERCOCET 10-325 PO PRN (11:19)
--- NOTE | 2016-11-16 11:38 | HP ---
DATE OF SERVICE: 11/15/16 REASON FOR HOSPITALIZATION: Dizziness and almost fell and passed out. HISTORY OF PRESENT ILLNESS: The patient is a 61 year old female with multiple medical problems and multiple medications who went to her friends house early in the morning for the coffee and wanted to use the restroom. When she went to the rest room and tried to get up and she almost fainted and passed out. She was feeling bad so the friend called the EMT and the patient was brought to the emergency room. In the emergency room the blood pressure was 65/44. She was seen by Dr. Estrada in the emergency room and did get one liters of the IV fluids. Blood pressure came to 72/39. At that time the patient was admitted to the hospital with the hypotensive shock and dizziness most likely maybe the medications and rule out infection. REVIEW OF SYSTEMS: CONSTITUTIONAL: No night sweats. Weakness and tiredness. No fever or chills. HEENT: Eyes: No visual changes. No eye pain. No eye discharge. ENT: No runny nose. No epistaxis. No sinus pain. No sore throat. No odynophagia. No ear pain. No congestion. RESPIRATORY: No cough, no congestion. No hemoptysis. CARDIOVASCULAR: No angina symptoms. No CHF symptoms. No atypical chest pain for CAD. No palpitations. No shortness of breath. GASTROINTESTINAL: No abdominal pain. No nausea or vomiting. No diarrhea or constipation. No hematemesis. No hematochezia. GENITOURINARY: No urgency. No frequency. No dysuria. No hematuria. No obstructive symptoms. No discharge. No pain. No significant abnormal bleeding. MUSCULOSKELETAL: No musculoskeletal pain. No joint swelling. No arthritis. NEUROLOGICAL: No headache. No neck pain. Near syncopal episode. No seizures. Dizziness. PSYCHIATRIC: Not anxious. No depression. No suicidal thoughts. No homicidal thoughts. SKIN: No rash. No lesions. No wounds. ENDOCRINE: No unexplained weight loss. No weight gain. HEMATOLOGIC/LYMPHATIC: No anemia. No purpura. No petechiae. No prolonged or excessive bleeding. No palpable lymph nodes. PERSONAL/FAMILY/SOCIAL HISTORY: The patient does drink alcohol occasional and smokes still. No substance use. Family history significant for the diabetes and heart problems. PAST MEDICAL/SURGICAL PROBLEMS: Hypertension Dyslipidemia Seizure disorder non for 10 years Asthmatic bronchitis Constipation Osteoarthritis DJD spine Sjograns Syndrome Bipolar Depression Anxiety disorder Ankle fusion Appendectomy Total hip Tracheostomy MEDICATIONS: Folic acid Pravachol Gabapentin Sertraline Oxycodone Cilostazol Ramipril Methylphenidate Seroquel Trazodone Melatonin Aspirin Hydroxychloroquine Omeprazole Oxycodone Coumadin ALLERGIES: Codeine Meperidine Sulfa PHYSICAL EXAMINATION: VITAL SIGNS: Blood pressure 100/61, respiratory rate 18, heart rate 80, temperature 98.5. HEENT: Head normocephalic, atraumatic. Eyes: Extraocular muscles are intact. Pupils are equal, round and reactive to light and accommodation. Ears: No lesions. Nose appeared normal. Throat: No exudate or erythema. Mucosa dry. NECK: Supple. No JVD, no carotid bruit. No lymphadenopathy or thyromegaly. LUNGS: Decreased and clear to auscultation. Percussion note normal. Chest symmetrical. HEART: S1, S2, no S3. No murmurs. No cyanosis or clubbing. No ascites. Pulses: Dorsalis pedis and posterior tibial pulses +1 to +2 both sides. ABDOMEN: Soft. Nontender. Bowel sounds active. No CVA tenderness. No mass felt. EXTREMITIES: No edema. Full range of motion of all extremities, equal. NEUROLOGIC: No focal deficit. Cranial nerves II through XII are grossly intact. No headache, no double vision or headache. The patient is awake and alert. SKIN: Dry. Intact. Turgor - normal. LYMPHATIC: No palpable lymph nodes/no lymphedema. MUSCULOSKELETAL: Normal joints with no swelling. Muscle tone is normal. ASSESSMENT: 1. Hypotensive shock 2. Near Syncope 3. Polypharmacy 4. Hypertension 5. Dyslipidemia 6. Osteoarthritis 7. DJD spine 8. Sjograns Syndrome, in review of patient's Sjogran's syndrome I think maybe patient has some neurological related hypotensive issues but will be evaluated for that later. PLAN: 1. Admit to the floor 2. IV fluids 3. Will decrease the Oxycodone to twice a day a long with the Percocet twice a day alternating 4. Continue the rest of the home medication 5. Hold the Coumadin 6. 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 7. The patient has a protein C and S deficiency and she takes snf anticoagulation. TIME SPENT: More than 70 minutes. [facility]
--- NOTE | 2016-11-16 13:43 | US ---
EXAM: ULTRASOUND CAROTID DUPLEX, BILATERAL HISTORY: Dizziness, near-syncope FINDINGS: Bran-scale ultrasound, color Doppler and spectral analysis was performed. Velocities are in meters per second. By bran scale and color Doppler imaging, there appeared to be a large amount of heterogeneous athero sclerotic plaque, especially at the level of the carotid bulbs and proximal internal carotid arterie s probably greater on the right than left. The degree of plaque appeared to be greater than 50% ves tyson diameter in some areas. RIGHT: External carotid artery peak systolic velocity: 1.5/0.2 Common carotid artery peak systolic velocity/end diastolic velocity: 0.6 Internal carotid artery peak systolic velocity: 1.2 ICA/CCA peak systolic velocity ratio: 2.0 ICA end diastolic velocity: 0.4 LEFT: External carotid artery peak systolic velocity: 0.6/0.1 Common carotid artery peak systolic velocity/end diastolic velocity: 0.9/0.3 Internal carotid artery peak systolic velocity: 0.6 ICA/CCA peak systolic velocity ratio: 0.7 ICA end diastolic velocity: 0.3 The right and left vertebral arteries were antegrade. IMPRESSION: 1. By bran scale and color Doppler imaging, there appeared to be a large amount of heterogeneous at herosclerotic plaque, especially at the level of the carotid bulbs and proximal internal carotid art eries probably greater on the right than left. The degree of plaque appeared to be greater than 50% vessel diameter in some areas. 2. Internal carotid artery peak systolic velocities and ICA/CCA peak systolic velocity ratios indic ate no hemodynamically significant stenosis bilaterally. Note that the velocities and color Doppler imaging findings do not correlate. Evaluation with CTA can be considered if indicated clinically. 3. Both vertebral arteries were antegrade.
--- NOTE | 2016-11-19 09:45 | DS ---
DATE OF SERVICE: 11/16/16 FINAL DIAGNOSIS: 1. Hypotension most likely from the polypharmacy 2. Hypotensive shock secondary to the polypharmacy 3. Near syncope from above 4. History of Hypertension 5. Dyslipidemia 6. Osteoarthritis 7. DJD spine 8. Sjogran's syndrome 9. Depression 10.Anxiety 11.Osteoporosis 12.Nicotine use 13.Ankle fusion 14.Appendectomy 15.Total hip replacement 16.Tracheostomy DISCHARGE INSTRUCTIONS: Discharge the patient home. Medication side effects and dependency and abuse been discussed with the patient almost every day. Continue the home medication except for the Coumadin. The patient is on the Coumadin because the patient has a Protein 6 deficiency, hypercoagulable state. MEDICATIONS AT DISCHARGE: Folic acid Pravachol Gabapentin Sertraline Oxycodone Cilostazol Ramipril Methylphenidate Seroquel Trazodone Melatonin Aspirin Hydroxychloroquine Omeprazole Oxycodone Ondansetron NEW PRESCRIPTIONS: None DIET INSTRUCTIONS: Cardiac and Healthy ACTIVITY: As much as tolerated SMOKING: Current every day smoker. Light tobacco smoker. DISEASE SPECIFIC EDUCATION: Polypharmacy Dependency abuse Dehydration Falls Been discussed and verbalized understanding. HOSPITAL COURSE: Joy Huerta is a 61 year old female with multiple medical problems and multiple medication. [facility] and started using the bathroom and starting to stand up she almost passed out and was brought to the emergency room and was seen by Dr. Estrada in the emergency room. Initial blood pressure was 65/44 and the patient was given 1 liter of fluid after that the blood pressure was still 72/39. Chest x-ray was done which was negative for any acute infection. At that time the patient was admitted to the hospital for IV fluids and near syncope. With the given IV fluids gradually the blood pressure came up to 100/61 then 104/62. Her pain medications Percocet's were made only twice a day and she was more awake and alert and did not have any problems. Carotid ultrasound was done. The patient tolerated the food fine and did not have any complications. Carotid ultrasound did not show the right the side is more than 50% and the left sided is hemodynamically significant stenosis and it was suggested a CTA but meanwhile the patient wanted to go home and didn't want to stay anymore and suggested to have a followup in the [facility] and we will schedule outpatient CTA on the patient. TIME SPENT: More than 55 minutes today. KELLY
== END 2016-11-16 13:24 | disposition home or self-care (01) | DRG 312 ==
LOC: ED 07:55 → MEDSURG B 09:25
PROVIDERS: ADMIT Emergency Medicine; ATTEND Emergency Medicine
DX: I95.2 Hypotension due to drugs (principal); R57.8 Other shock; D68.59 Other primary thrombophilia; T40.2X5A Adverse effect of other opioids, initial encounter; R42 Dizziness and giddiness; R55 Syncope and collapse; I95.9 Hypotension, unspecified; R06.00 Dyspnea, unspecified; M35.00 Sjogren syndrome, unspecified; I10 Essential (primary) hypertension; E78.5 Hyperlipidemia, unspecified; M19.90 Unspecified osteoarthritis, unspecified site; M47.9 Spondylosis, unspecified; F41.8 Other specified anxiety disorders; M81.0 Age-related osteoporosis without current pathological fracture; F17.200 Nicotine dependence, unspecified, uncomplicated; W19.XXXA Unspecified fall, initial encounter; Z86.718 Personal history of other venous thrombosis and embolism; Z79.01 Long term (current) use of anticoagulants; Z79.899 Other long term (current) drug therapy
CPT/HCPCS: 36415; 80053; 81001; 82272; 82550; 83880; 84484; 85025; 85610; 87040; 87086; 93005; 93010; 96360; 96361; 99283

== ENCOUNTER 2016-11-24 09:09 | Outpatient (CLI) | payer OTHER ==
--- NOTE | 2016-11-24 10:13 | CT ---
EXAM: CT angiogram neck. HISTORY: Dizziness and giddiness. COMPARISON: Carotid ultrasound 11/16/2016. TECHNIQUE: Multiple axial images of the neck were obtained prior to and following intravenous admin istration of 125 mL of Omnipaque 350, low osmolar. Multiplanar reformatted images and three -dimens ional reconstructed images were created on an independent workstation. FINDINGS: Emphysematous changes seen in the lung apices. Calcified granulomatous changes noted. N o acute abnormalities seen within the soft tissues of the neck. Calcifications present. The aortic arch without evidence for aortic dissection. The origins of the great vessels are patent although calcified plaquing is present. The vertebral arteries are patent bilaterally. The basilar artery is patent. Both posterior cerebral arteries are patent. There is calcified plaquing within the proximal portions of both common carotid arteries as well as within both carotid bulbs without significant stenosis in the common carotid arteries. Both externa l carotid arteries are patent. Calcified plaquing in the proximal right internal carotid artery gabriella rows the blood flowing lumen approximately 40%. Calcified plaquing in the proximal left internal ca rotid artery demonstrates no significant stenosis. Calcified plaquing present in the cavernous davila tid arteries bilaterally. The visualized anterior and middle cerebral arteries are patent. IMPRESSION: 1. Approximately 40% stenosis in the proximal right internal carotid artery. 2. No significant stenosis in the left internal carotid artery. 3. Patent vertebral arteries bilaterally.
== END 2016-11-24 09:10 | disposition home or self-care (01) ==
LOC: RAD 09:09
PROVIDERS: ATTEND Emergency Medicine
DX: R42 Dizziness and giddiness (principal); R55 Syncope and collapse

== ENCOUNTER 2017-01-10 07:56 | Outpatient (CLI) | END 2017-01-10 07:57 | LOC: AMBL 07:56 | PROVIDERS: ATTEND Emergency Medicine | DX: R11.0 Nausea (principal); K08.89 Other specified disorders of teeth and supporting structures; Z79.899 Other long term (current) drug therapy ==

== ENCOUNTER 2017-01-12 08:48 | Emergency (ER) | payer OTHER ==
[2017-01-12 08:59] VITALS: BP 148/73; TEMP 98.6; BMI 21.6
[2017-01-12 09:43] LABS: BASOPHILS % (AUTO) 0.4 % (0.0-3.0); EOSINOPHILS % (AUTO) 0.7 % (0.0-7.0); HEMATOCRIT 35.4 % (37.0-47.0); HEMOGLOBIN 12.2 g/dl (12.0-16.0); IMMATURE GRANULOCYTE % (AUTO) 0.2 % (0.0-5.0); LYMPHOCYTES # (AUTO) 0.8 K/uL (0.60-3.4); LYMPHOCYTES % (AUTO) 17.9 (10.0-50.0); MEAN CORPUSCULAR HEMOGLOBIN 30.6 pg (27.0-31.0); MEAN CORPUSCULAR HGB CONC 34.5 (31.8-35.4); MEAN CORPUSCULAR VOLUME 88.7 fl (81.0-99.0); MONOCYTES # (AUTO) 0.3 K/uL (0.4-2.0); MONOCYTES % (AUTO) 7.1 (0-10); NEUTROPHILS # (AUTO) 3.3 K/ul (2.0-6.9); NEUTROPHILS % (AUTO) 73.7; PLATELET COUNT 160 10^3/uL (140-440); RED BLOOD COUNT 3.99 10^6/ul (4.20-5.40); WHITE BLOOD COUNT 4.53 K/ul (4.6-10.2)
[2017-01-12 09:56] LABS: BILIRUBIN,URINE Negative (NEGATIVE); KETONES,URINE Negative (NEGATIVE); LEUKOCYTE ESTERASE ,URINE Negative (NEGATIVE); NITRITE,URINE Negative (NEGATIVE); PROTEIN,URINE Negative (NEGATIVE); URINE, BLOOD Trace-intact (NEGATIVE)
[2017-01-12 09:58] LABS: ADD URINE MICROSCOPIC YES
[2017-01-12 10:24] LABS: ALANINE AMINOTRANSFERASE 19 U/L (12-78); ALBUMIN 3.4 g/dL (3.4-5.0); ALBUMIN/GLOBULIN RATIO 0.94; ALKALINE PHOSPHATASE 77 U/L (53-141); ANION GAP 13.4; ASPARTATE AMINO TRANSFERASE 16 U/L (15-37); BILIRUBIN,TOTAL 0.56 mg/dL (0.00-1.20); BLOOD UREA NITROGEN 5 mg/dL (7-18); BUN/CREATININE RATIO 8.47; CALCIUM 9.1 mg/dL (8.2-10.2); CARBON DIOXIDE 22 mmol/L (23-31); CHLORIDE 107 mmol/L (98-107); CREATINE KINASE 45 U/L; CREATININE 0.59 mg/dL (0.60-1.30); GLUCOSE 109 mg/dL (82-115); POTASSIUM 3.4 mmol/L (3.5-5.10); SODIUM 139 mmol/L (136-145)
--- NOTE | 2017-01-12 10:43 | DI ---
EXAM: Chest two view, frontal and lateral views. HISTORY: Cough. COMPARISON: 11/15/2016. FINDINGS: The heart size is normal. There is no pulmonary vascular congestion. The lungs are jose l r. No pleural effusion or pneumothorax is seen. No acute osseous abnormality identified. Old ster nal fracture noted. Clips seen in the right upper abdomen. IMPRESSION: No acute cardiopulmonary process.
--- NOTE | 2017-01-12 10:47 | CT ---
EXAM: CT of the abdomen pelvis without contrast History: Abdominal pain. Comparison: CT abdomen pelvis 11/27/2015 Technique: Multiplanar CT images through the abdomen pelvis were obtained without the administratio n of IV contrast Findings: Lung bases are free of consolidation. No acute osseous abnormalities. Stable hardware wi thin the right hip. Osteopenia. The status post cholecystectomy. No focal liver or splenic lesions. Atherosclerotic vascular calci fications. There is some atrophy of the pancreas but no peripancreatic inflammation. Adrenal gland s are unremarkable. No renal stones and no hydronephrosis. Mild air and fluid distended loops of b oth large and small bowel. Scattered colonic stool. Evaluation of the pelvis is limited due to the streak artifact from the hip hardware. The appendix is not seen. The bladder is not well seen but there is no obvious bladder wall thickening. Impression: 1. Findings suggest mild gastroenteritis or ileus. There is no specific evidence for bowel obstruc tion. 2. Evaluation of the pelvis is limited due to beam hardening artifact from the right hip hardware.
[2017-01-12] MEDS ORDERED: SODIUM CHLORIDE 1,000 ML IV STA (10:51)
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
[2017-01-12] MEDS ORDERED: ZOFRAN 4 MG/2 ML IVP STA ×2 (10:56→11:00)
[2017-01-12 11:08] LABS: PARTIAL THROMBOPLASTIN TIME 47.5 SEC (23.9-40.0); PROTHROMBIN TIME 28.8 SEC (9.3-11.0)
== END 2017-01-12 13:25 | disposition home or self-care (01) ==
LOC: ED 08:48
DX: D64.9 Anemia, unspecified (principal); R11.0 Nausea; R10.9 Unspecified abdominal pain; F17.210 Nicotine dependence, cigarettes, uncomplicated; Z79.01 Long term (current) use of anticoagulants; Z79.899 Other long term (current) drug therapy
CPT/HCPCS: 36415; 80053; 81001; 82550; 84439; 84443; 84484; 85025; 85610; 85730; 87040; 87651; 87880; 93005; 93010; 96361; 96374; 99283

== ENCOUNTER 2017-02-19 08:23 | Emergency (ER) ==
[2017-02-19 08:30] VITALS: BP 136/75; TEMP 98.4; BMI 21.9
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
[2017-02-19 09:16] LABS: BASOPHILS % (AUTO) 0.5 % (0.0-3.0); EOSINOPHILS # (AUTO) 0.1 K/ul (0.0-0.7); EOSINOPHILS % (AUTO) 1.4 % (0.0-7.0); HEMATOCRIT 37.3 % (37.0-47.0); HEMOGLOBIN 12.5 g/dl (12.0-16.0); IMMATURE GRANULOCYTE % (AUTO) 0.3 % (0.0-5.0); LYMPHOCYTES # (AUTO) 0.8 K/uL (0.60-3.4); LYMPHOCYTES % (AUTO) 21.4 (10.0-50.0); MEAN CORPUSCULAR HGB CONC 33.5 (31.8-35.4); MEAN CORPUSCULAR VOLUME 89.7 fl (81.0-99.0); MONOCYTES # (AUTO) 0.3 K/uL (0.4-2.0); MONOCYTES % (AUTO) 8.2 (0-10); NEUTROPHILS # (AUTO) 2.5 K/ul (2.0-6.9); NEUTROPHILS % (AUTO) 68.2; PLATELET COUNT 262 10^3/uL (140-440); RED BLOOD COUNT 4.16 10^6/ul (4.20-5.40); WHITE BLOOD COUNT 3.64 K/ul (4.6-10.2)
[2017-02-19 09:36] LABS: ALBUMIN 3.3 g/dL (3.4-5.0); ALBUMIN/GLOBULIN RATIO 0.85; ANION GAP 12.9; BILIRUBIN,TOTAL 0.29 mg/dL (0.00-1.20); BUN/CREATININE RATIO 11.29; CALCIUM 9.3 mg/dL (8.2-10.2); CREATININE 0.62 mg/dL (0.60-1.30); POTASSIUM 3.9 mmol/L (3.5-5.10); TOTAL PROTEIN 7.2 g/dL (5.8-8.1)
[2017-02-19 09:41] LABS: BILIRUBIN,URINE Negative (NEGATIVE); KETONES,URINE Negative (NEGATIVE); LEUKOCYTE ESTERASE ,URINE Negative (NEGATIVE); NITRITE,URINE Negative (NEGATIVE); PROTEIN,URINE Negative (NEGATIVE); URINE, BLOOD Trace-intact (NEGATIVE)
[2017-02-19 09:44] LABS: ADD URINE MICROSCOPIC YES
== END 2017-02-19 12:54 | disposition home or self-care (01) ==
LOC: ED 08:23
DX: A08.4 Viral intestinal infection, unspecified (principal); M32.9 Systemic lupus erythematosus, unspecified; E78.5 Hyperlipidemia, unspecified; K21.9 Gastro-esophageal reflux disease without esophagitis; F17.210 Nicotine dependence, cigarettes, uncomplicated; Z79.899 Other long term (current) drug therapy
CPT/HCPCS: 36415; 80053; 81001; 82150; 83605; 83690; 85025; 99283

== ENCOUNTER 2017-03-10 10:29 | Outpatient (CLI) ==
--- NOTE | 2017-03-10 12:59 | MRI ---
EXAM: MRI brain without IV contrast. DATE: 10 March 2017. HISTORY: Dizziness and giddiness. TECHNIQUE: Sagittal T1W, axial T2W, axial FLAIR, axial T1W, axial DWI, and coronal T2W GRE sequences of the brain were obtained using 1.2 Debbie magnet. No IV contrast. COMPARISON: None. FINDINGS: The lateral ventricles, Sylvian fissures, and many cerebral sulci (especially frontal / pa rietal lobes) are mildly prominent due to involutional change. No midline shift, mass effect or abno rmal extra-axial fluid collection is apparent. No acute infarct, hemorrhage or neoplasm is identifie d. Narrow, confluent rim of T2W/FLAIR hyperintensity is observed in the white matter abutting each l ateral ventricle. A handful of 2-5 mm, T2W/FLAIR bright foci are scattered within the dos santos radiata and subcortical white matter bilaterally. Several 2-3 mm diameter, T2W bright foci are demonstrated in the vita. The hernandez - white matter differentiation is normal. The 7th/8th cranial nerve complexe s, cerebellopontine angles, and visible cervical spinal cord are normal. There is no cerebellar tons illar ectopia. The pituitary gland is normal in size and signal. Corpus callosum is normal in size, but the body is bowed upward due to ventricular prominence. Flow voids are present in the major int racranial arteries and in the dural venous sinuses. No aneurysm, AVM or dural venous sinus thrombosi s is apparent. Distortion of the globe of each eye is likely due to mascara. No definitive orbit ab normality is identified. Right mastoid air cells are unremarkable. A few inferior left mastoid air cells have T2W bright, T1W intermediate signal. There is no acute sinusitis. No neck mass or lympha denopathy is detected. Mild thickening of the inner table of the frontal bone appears benign. No ca lvarial neoplasm or acute fracture is evident. Posterior disc/osteophyte complex and C3-4 appears to cause mild central canal stenosis. IMPRESSIONS: 1. No acute infarct, hemorrhage, mass or hydrocephalus. 2. Minor supratentorial / brainstem small vessel disease. 3. Mild cerebral and minor cerebellar atrophy. 4. Minor left mastoid effusion vs mastoiditis. 5. C3-4 DDD and mild central canal stenosis.
== END 2017-03-10 10:30 | disposition home or self-care (01) ==
LOC: RAD 10:29
PROVIDERS: ATTEND Emergency Medicine
DX: R42 Dizziness and giddiness (principal)

== ENCOUNTER 2017-03-11 09:47 | Emergency (ER) ==
[2017-03-11 09:56] VITALS: BP 89/62; TEMP 98.1; BMI 23.4
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
[2017-03-11 11:07] LABS: HEMOGLOBIN 11.7 g/dl (12.0-16.0); RED BLOOD COUNT 3.93 10^6/ul (4.20-5.40); WHITE BLOOD COUNT 4.31 K/ul (4.6-10.2)
[2017-03-11 11:08] LABS: BASOPHILS % (AUTO) 0.5 % (0.0-3.0); EOSINOPHILS % (AUTO) 3.7 % (0.0-7.0); HEMATOCRIT 35.3 % (37.0-47.0); LYMPHOCYTES % (AUTO) 38.5 (10.0-50.0); MEAN CORPUSCULAR HEMOGLOBIN 29.8 pg (27.0-31.0); MEAN CORPUSCULAR HGB CONC 33.1 (31.8-35.4); MEAN CORPUSCULAR VOLUME 89.8 fl (81.0-99.0); MONOCYTES % (AUTO) 10.4 (0-10); NEUTROPHILS % (AUTO) 46.9; PLATELET COUNT 211 10^3/uL (140-440)
[2017-03-11 11:09] LABS: BILIRUBIN,URINE Negative (NEGATIVE); EOSINOPHILS # (AUTO) 0.2 K/ul (0.0-0.7); IMMATURE GRANULOCYTE % (AUTO) 0.2 % (0.0-5.0); KETONES,URINE Negative (NEGATIVE); LEUKOCYTE ESTERASE ,URINE Negative (NEGATIVE); LYMPHOCYTES # (AUTO) 1.7 K/uL (0.60-3.4); MONOCYTES # (AUTO) 0.5 K/uL (0.4-2.0); NITRITE,URINE Negative (NEGATIVE); PH,URINE 5.5 (5-9); PROTEIN,URINE Negative (NEGATIVE); URINE, BLOOD Negative (NEGATIVE)
[2017-03-11 11:10] LABS: ADD URINE MICROSCOPIC NO
[2017-03-11 11:17] LABS: ALBUMIN/GLOBULIN RATIO 0.79; ANION GAP 11.8; BILIRUBIN,TOTAL 0.31 mg/dL (0.00-1.20); CALCIUM 8.8 mg/dL (8.2-10.2); CREATININE 0.75 mg/dL (0.60-1.30); POTASSIUM 3.8 mmol/L (3.5-5.10); PROTHROMBIN TIME 37.3 SEC (9.3-11.0); TOTAL PROTEIN 6.8 g/dL (5.8-8.1)
--- NOTE | 2017-03-11 11:18 | CT ---
EXAM: CT BRAIN HISTORY: Dizziness, syncope. Hit head. TECHNIQUE: CT brain without intravenous contrast. 5-mm axial sections with Reformations. COMPARISON: No comparison CT FINDINGS: Mild generalized atrophy. There is at least mild periventricular and deep white matter low attenuatio n which although nonspecific is suggestive of chronic microvascular ischemic change. Brain parenchyma is otherwise unremarkable without distinct evidence of hemorrhage or large vessel distribution recen t ischemic infarction. There is no suggestion of acute hydrocephalus or subdural fluid collection. No mass or mass effect. Cranium is within normal limits. Mastoid air cells are aerated. The visualized paranasal sinuses a re clear. IMPRESSION: No acute intracranial process or injury.
[2017-03-11 11:23] LABS: TROPONIN I 0.022 ng/ml (0.0000-0.4000)
--- NOTE | 2017-03-15 11:34 | HOLTER ---
PATIENT INFORMATION AND COMMENTS Attending Physician: TORY SMALLS Indications: SYNCOPAL EPISODES __ Patient Medications: SERTRALINE, MECLIZINE, RAMIPRIL, CILOSTAZOL, OMEPRAZOLE, METHYLPHENDIDATE, SEROQUEL, TRAZODONE, GABAPENTIN, PERCOCET, MELATONIN, ASA __ Pre-procedure Summary: Protocol: Standard Heart Rate Started: 03/11/17 1159 Minimum: 69 BPM Weight: 140 LBS Ended: 03/12/17 1159 Maximum: 164 BPM Height: 65" Duration: 24 HOURS Average: 69 BPM _ INTERPRETATIONS/OBSERVATIONS: 1. BASIC RHYTHM: SINUS, RATE 70 BPM TO 150 BPM, AVERAGE 100 BPM 2. FREQUENT PAC'S--NO SUSTAINED ATRIAL ARRHYTHMIAS 3. PVC'S INFREQUENT--COUPLE OF COUPLETS, NO TACHYCARDIA 4. NO ST-T WAVE CHANGES FROM BASELINE 5. NO CORRELATION WITH ACTIVITY LOG MTDD
== END 2017-03-11 12:07 | disposition home or self-care (01) ==
LOC: ED 09:47
DX: R55 Syncope and collapse (principal); R42 Dizziness and giddiness; F17.210 Nicotine dependence, cigarettes, uncomplicated; E78.5 Hyperlipidemia, unspecified; M32.9 Systemic lupus erythematosus, unspecified; Z79.01 Long term (current) use of anticoagulants; Z79.899 Other long term (current) drug therapy; W19.XXXA Unspecified fall, initial encounter; S09.90XA Unspecified injury of head, initial encounter
CPT/HCPCS: 36415; 80053; 81001; 82550; 84484; 85025; 85610; 93005; 93010; 99284

== ENCOUNTER 2017-03-23 06:12 | Outpatient (CLI) | payer OTHER ==
--- NOTE | 2017-03-23 14:35 | ECHO2D ---
Date of Exam: 03/23/17 Ordering Physician: TORY SMALLS Room #: OP Reason for Echo: HYPERTENSION, DYSLIPIDEMIA, DYSPNEA ON EXERTION Murmurs: SYSTOLIC M-Mode Normal Adult Results LV Dimensions Normal Adult Results AoV Opening excursions >1.6 1.3 LVEDD-base- 3.5-5.8 5.7 Ao root dimensions 2.0-3.7 3.0 LVESD-base- 3.1-4.6 L. Atrium dimensions 1.9-3.8 3.8 Post. Wall thickness 0.8-1.1 1.0 IV septum (thickness) 0.7-1.2 1.1 Post. Wall excursion 0.72-1.3 NORMAL Septal motion NORMAL Systolic motion R. Ventricular cavity 1.5-2.0 NORMAL LVEF 60% 55% Paradoxical septal wall motion NORMAL 2-D : CALCIFIC AORTIC VALVES--NORMAL LEFT VENTRICULAR CONTRACTILITY--NO EFFUSION , NO THROMBUS, NORMAL LEFT ATRIAL AND LEFT VENTRICLE SIZE. COLOR FLOW: AORTIC REGURGITATION (MODERATE) M-MODE: MV: NORMAL AV: MILD TO MODERATE AORTIC STENOSIS--CALCIFIC AREA 1.6 CM2 TV: NORMAL PV: NORMAL CHAMBER SIZE: NORMAL WALL MOTION: NORMAL PERICARDIUM: NORMAL INTERPRETATION: 1. NORMAL LEFT VENTRICULAR CONTRACTILITY 2. CALCIFIC AORTIC STENOSIS--MILD TO MODERATE (1.6 CM2-VALVE AREA) 3. NORMAL LEFT ATRIAL AND LEFT VENTRICLE SIZE YEARLY ECHO ADVISED MTDD
== END 2017-03-23 06:13 | disposition home or self-care (01) ==
LOC: CAR 06:12
PROVIDERS: ATTEND Emergency Medicine
DX: E78.5 Hyperlipidemia, unspecified (principal); I10 Essential (primary) hypertension; R06.09 Other forms of dyspnea

== ENCOUNTER 2017-07-14 13:59 | Outpatient (CLI) | payer OTHER | END 2017-07-14 14:00 | disposition home or self-care (01) | LOC: LAB 13:59 | PROVIDERS: ATTEND Emergency Medicine | DX: I10 Essential (primary) hypertension (principal); N30.01 Acute cystitis with hematuria; Z86.718 Personal history of other venous thrombosis and embolism | CPT/HCPCS: 36415; 80053; 85025; 85610 ==

== ENCOUNTER 2017-08-30 11:00 | Day surgery (SDC) ==
[2017-08-30] MEDS ORDERED: LIDOCAINE 1% 20 ML MDV ID STA (11:51)
[2017-08-30] MEDS ORDERED: VERSED ONE (12:00)
[2017-08-30] MEDS ORDERED: SUBLIMAZE ONE (12:00)
[2017-08-30] MEDS ORDERED: DIPRIVAN 20 ML VIAL IVP ONE (12:00)
[2017-08-30] MEDS ORDERED: LIDOCAINE HCL 2% LUER-JET ONE (12:00)
[2017-08-30 15:11] VITALS: BP 126/52; TEMP 98.5
--- NOTE | 2017-08-31 11:03 | OP ---
PROCEDURE: EGD (ESOPHAGOGASTRODUODENOSCOPY). ENDOSCOPIST: Valeriy RAJPUT M.D. INDICATION: REFLUX. INSTRUMENT: GIFH-190. MEDICATION: PER ANESTHESIA. PROCEDURE: The patient was positioned for endoscopy. The oropharynx was intubated and advanced through the oropharynx into the esophagus and from there to the duodenum. The duodenum was grossly normal. The pylorus was patent. The antrum reveals mild reflux. Retroflex exam was normal. Z-line was normal at 36 cm. The esophagus was otherwise normal. PLAN: 1. Continue current medications. CC: DR. SERINA MENDOZA
--- NOTE | 2017-08-31 11:06 | OP ---
PROCEDURE: COLONOSCOPY TO THE CECUM WITH SNARE POLYPECTOMY. ENDOSCOPIST: Valeriy RAJPUT M.D. INDICATION: RECTAL BLEEDING. INSTRUMENT: FH-190. MEDICATION: PER ANESTHESIA. PROCEDURE: The patient was positioned for colonoscopy. The digital rectal exam was negative. The colonoscope was inserted through the anus and advanced to the cecum. A tortuous exam. [place] Bowel Prep Score 2 + 2 + 2 = 6. Within the rectum, a 1 cm sessile polyp is removed using snare cautery. Retroflex exam was otherwise normal. Withdrawal time 9 minutes 7 seconds. PLAN: 1. Reviewed pathology with anticipated repeat colonoscopy in 3 years. CC: DR. SERINA MENDOZA
== END 2017-08-30 13:00 | disposition home or self-care (01) ==
LOC: SURG 11:00
PROVIDERS: ATTEND Internal Medicine Gastroenterology
DX: K62.5 Hemorrhage of anus and rectum (principal); K21.9 Gastro-esophageal reflux disease without esophagitis; D12.7 Benign neoplasm of rectosigmoid junction; K56.2 Volvulus

== ENCOUNTER 2017-09-29 09:57 | Outpatient (CLI) | payer OTHER | END 2017-09-29 09:58 | disposition left against medical advice (07) | LOC: AMBL 09:57 | PROVIDERS: ATTEND Internal Medicine | DX: Z04.3 Encounter for examination and observation following other accident (principal); W19.XXXA Unspecified fall, initial encounter ==

== ENCOUNTER 2017-09-29 10:07 | Outpatient (CLI) | END 2017-09-29 10:08 | disposition home or self-care (01) | LOC: RHC-LAB 10:07 | PROVIDERS: ATTEND Emergency Medicine | DX: Z51.81 Encounter for therapeutic drug level monitoring (principal); Z79.01 Long term (current) use of anticoagulants | CPT/HCPCS: 36415; 85610 ==

== ENCOUNTER 2017-10-12 06:43 | Outpatient (CLI) ==
--- NOTE | 2017-10-12 08:50 | DI ---
EXAM: Three views of the left shoulder HISTORY: Left shoulder pain. COMPARISON: Right shoulder x-rays same day FINDINGS: There is no cortical irregularity or displaced fracture of the left shoulder. Glenohumeral joint and acromioclavicular joint are normal. Soft tissues are normal. There is no lytic or blasti c lesion. There is no dislocation. IMPRESSION: No acute abnormality of the left shoulder.
--- NOTE | 2017-10-12 08:50 | DI ---
Exam: Right shoulder three-view History: Right shoulder pain Findings / impression: No acute bony or articular abnormality of the right shoulder. Marginal osteo phytosis of the glenoid suggest some degree of osteoarthritic change. Normal acromioclavicular joint .
== END 2017-10-12 06:44 | disposition home or self-care (01) ==
LOC: RAD 06:43
PROVIDERS: ATTEND Emergency Medicine
DX: M25.511 Pain in right shoulder (principal); L93.0 Discoid lupus erythematosus; Z86.718 Personal history of other venous thrombosis and embolism
CPT/HCPCS: 36415; 85610

== ENCOUNTER 2017-10-12 11:00 | Inpatient (IN) | payer OTHER ==
[2017-10-12 11:58] VITALS: BMI 22.8
[2017-10-12] MEDS ORDERED: VITAMIN K IM STA (12:25)
[2017-10-12] MEDS ORDERED: TYLENOL PO PRN (12:26)
[2017-10-12] MEDS: SODIUM CHLORIDE 1,000 ML IV SCH (15:13)
[2017-10-12] MEDS ORDERED: NON-FORMULARY MEDICATION (Ondansetron Hcl [Zofran] 8 MG) PO PRN (16:35)
[2017-10-12] MEDS ORDERED: ZOFRAN TAB PO PRN (16:48)
[2017-10-12] MEDS ORDERED: NON-FORMULARY MEDICATION (Omeprazole Magnesium [Prilosec Otc] 20 MG) PO SCH (17:00)
[2017-10-12] MEDS: PRILOSEC PO SCH (17:52)
[2017-10-12] MEDS: PRAVACHOL PO SCH (17:52)
[2017-10-12] MEDS: SEROQUEL PO SCH ×2 (20:47→20:48)
[2017-10-12] MEDS: ZANAFLEX PO SCH (20:48)
[2017-10-12] MEDS: ANTIVERT PO SCH (20:48)
[2017-10-12] MEDS: FERROUS SULFATE PO SCH (20:49)
[2017-10-12] MEDS: DESYREL PO SCH (20:49)
[2017-10-12] MEDS: PLETAL PO SCH (20:49)
[2017-10-12] MEDS: NEURONTIN PO SCH (20:49)
[2017-10-12] MEDS: ATROVENT HFA IH SCH (20:50)
[2017-10-12] MEDS: NON-FORMULARY MEDICATION (Melatonin [Melatonin] 10 MG) PO SCH (20:51)
[2017-10-12] MEDS ORDERED: QUETIAPINE PO SCH (21:00)
[2017-10-12] MEDS ORDERED: TRAZODONE 200 MG PO SCH (21:00)
[2017-10-12] MEDS ORDERED: NON-FORMULARY MEDICATION (Gabapentin [Gabapentin] 600 MG) PO SCH (21:00)
[2017-10-12] MEDS ORDERED: NON-FORMULARY MEDICATION (Meclizine Hcl [Meclizine Hcl] 12.5 MG) PO SCH (21:00)
[2017-10-12] MEDS ORDERED: NON-FORMULARY MEDICATION (Ferrous Sulfate [Ferrous Sulfate] 325 MG) PO SCH (21:00)
[2017-10-13] MEDS: SODIUM CHLORIDE 1,000 ML IV SCH ×2 (03:23→18:24)
[2017-10-13] MEDS: PRILOSEC PO SCH ×2 (05:30→16:14)
[2017-10-13] MEDS: PERCOCET 10-325 PO PRN ×2 (06:18→13:34)
[2017-10-13] MEDS: ALTACE PO SCH (08:52)
[2017-10-13] MEDS: NEURONTIN PO SCH ×2 (08:53→20:30)
[2017-10-13] MEDS: ZANAFLEX PO SCH ×3 (08:53→20:30)
[2017-10-13] MEDS: ANTIVERT PO SCH ×3 (08:54→20:30)
[2017-10-13] MEDS: FERROUS SULFATE PO SCH ×2 (08:54→20:29)
[2017-10-13] MEDS: PLETAL PO SCH ×2 (08:55→20:30)
[2017-10-13] MEDS: FOLIC ACID PO SCH (08:55)
[2017-10-13] MEDS: PLAQUENIL PO SCH (08:55)
[2017-10-13] MEDS: ZOLOFT PO SCH ×2 (08:56)
[2017-10-13] MEDS: ATROVENT HFA IH SCH ×3 (08:57→20:33)
[2017-10-13] MEDS ORDERED: HYDROXYCHLOROQUINE SULFATE 200 MG PO SCH (09:00)
[2017-10-13] MEDS ORDERED: RAMIPRIL 5 MG PO SCH (09:00)
[2017-10-13] MEDS ORDERED: NON-FORMULARY MEDICATION (Sertraline Hcl [Zoloft] 100 MG) PO SCH (09:00)
[2017-10-13] MEDS: NON-FORMULARY MEDICATION (Methylphenidate Hcl [Ritalin] 20 MG) PO SCH (09:03)
[2017-10-13] MEDS: PRAVACHOL PO SCH (16:15)
[2017-10-13] MEDS ORDERED: COUMADIN PO SCH (17:00)
[2017-10-13] MEDS: DESYREL PO SCH (20:29)
[2017-10-13] MEDS: SEROQUEL PO SCH ×2 (20:30)
[2017-10-13] MEDS: NON-FORMULARY MEDICATION (Melatonin [Melatonin] 10 MG) PO SCH (20:47)
[2017-10-14] MEDS: PERCOCET 10-325 PO PRN ×2 (03:44→10:52)
[2017-10-14] MEDS: PRILOSEC PO SCH (05:55)
[2017-10-14] MEDS: SODIUM CHLORIDE 1,000 ML IV SCH (07:44)
[2017-10-14] MEDS: ATROVENT HFA IH SCH (08:22)
[2017-10-14] MEDS: PLAQUENIL PO SCH (08:23)
[2017-10-14] MEDS: ZOLOFT PO SCH ×2 (08:23→08:28)
[2017-10-14] MEDS: FERROUS SULFATE PO SCH (08:23)
[2017-10-14] MEDS: ALTACE PO SCH (08:23)
[2017-10-14] MEDS: PLETAL PO SCH (08:23)
[2017-10-14] MEDS: ANTIVERT PO SCH (08:24)
[2017-10-14] MEDS: FOLIC ACID PO SCH (08:25)
[2017-10-14] MEDS: ZANAFLEX PO SCH (08:25)
[2017-10-14] MEDS: NEURONTIN PO SCH (08:25)
[2017-10-14] MEDS: NON-FORMULARY MEDICATION (Methylphenidate Hcl [Ritalin] 20 MG) PO SCH (08:26)
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
--- NOTE | 2017-10-14 11:53 | PN ---
DATE OF SERVICE: 10/13/17 SUBJECTIVE: The patient does not have any complaints. No black tarry stools. No blood in the urine. No dizziness. The patient did have a recent fall for which the patient never got evaluation for. Otherwise, no chest pain, no PND, no orthopnea. She has some light dizziness on and off. REVIEW OF SYSTEMS: CONSTITUTIONAL: No fever, no chills. HEENT: Normal. ENDOCRINE: No weight gain, no weight loss. CVS: No angina symptoms. No CHF symptoms. No palpitations. No atypical chest pain for CAD. No shortness of breath. No PND, no orthopnea. RESPIRATORY: No cough, no hemoptysis. GI: No nausea, no vomiting. No abdominal pain. : No hematuria. No polyuria. MUSCULOSKELETAL: No joint swelling. NEUROLOGIC: Some dizziness off and on. PSYCHIATRIC: Not anxious. No depression. No suicidal thoughts. No homicidal thoughts. SKIN: Intact. No rash. PHYSICAL EXAMINATION: V/S: BP 125/79, respiratory rate 18, heart rate 80, temperature 99.3, saturation 96. HEENT: Normocephalic, atraumatic. Mucosa dry. NECK: Supple. No JVD, no carotid bruit. No lymphadenopathy. LUNGS: Clear to auscultation. No rales or rhonchi. HEART: S1, S2 normal. No S3. No murmur, gallop or regurgitation. ABDOMEN: Soft, nontender. Bowel sounds active. No rigidity. No rebound or guarding. No CVA tenderness. EXTREMITIES: No pedal edema. No clubbing or cyanosis MUSCULOSKELETAL: No joint swelling. NEUROLOGIC: Awake, alert, oriented times three. No focal deficit. LYMPHATIC: No lymph nodes palpable. SKIN: Intact. LABS: White count 3.13, hemoglobin 11.0, hematocrit 32.9, platelet count 213. Sodium 137, potassium 3.9, chloride 103, bicarb 24, BUN 8, creatinine 0.64, glucose 96. ASSESSMENT: 1. COUMADIN COAGULOPATHY WHICH IS CONTROLLED WITH VITAMIN K IM. TODAY PT/INR IS 2.08. 2. HISTORY OF HYPERCOAGULABLE STATE 3. RECURRENT DVT'S 4. HYPERTENSION 5. DYSLIPIDEMIA 6. OSTEOARTHRITIS 7. DJD SPINE 8. DEPRESSION 9. ANXIETY PLAN: 1. Resume Coumadin 6 mg p.o. daily 2. PT/INR in the morning 3. IV fluids 4. Daily I & O's TIME SPENT: More than 35 minutes today MTDD
--- NOTE | 2017-10-14 13:56 | CT ---
EXAM: CT head without contrast HISTORY: Trauma COMPARISON: CT head from 03/11/2017 TECHNIQUE: Helical axial CT of the head was performed without contrast. Coronal and sagittal reconstr uctions were performed. FINDINGS: There is no acute intracranial abnormality. There is no hemorrhage, mass, midline shift, abnormal ex tra-axial fluid collection, hydrocephalus or evolving ischemia. The hernandez-white matter junction is wel l maintained. There is trace generalized atrophy. Brain parenchyma, ventricles and sulci are otherwis e normal. There are no acute calvarial lesions. Visualized orbits and globes are unremarkable. The mastoid ai r cells demonstrate no significant soft tissue opacification. The visualized paranasal sinuses show n o air-fluid levels. IMPRESSION: No acute intracranial abnormality.
[2017-10-14 14:05] VITALS: BP 123/71; TEMP 98.9
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
== END 2017-10-14 15:05 | disposition home or self-care (01) | DRG 918 ==
LOC: MEDSURG A 11:00
PROVIDERS: ADMIT Emergency Medicine; ATTEND Emergency Medicine
DX: T50.995A Adverse effect of other drugs, medicaments and biological substances, initial encounter (principal); D68.59 Other primary thrombophilia; R56.1 Post traumatic seizures; D68.62 Lupus anticoagulant syndrome; D63.8 Anemia in other chronic diseases classified elsewhere; Z79.01 Long term (current) use of anticoagulants; Z51.81 Encounter for therapeutic drug level monitoring; M35.00 Sjogren syndrome, unspecified; M15.9 Polyosteoarthritis, unspecified; I10 Essential (primary) hypertension; F17.219 Nicotine dependence, cigarettes, with unspecified nicotine-induced disorders; E78.5 Hyperlipidemia, unspecified; Z86.718 Personal history of other venous thrombosis and embolism; F41.8 Other specified anxiety disorders; Z91.81 History of falling; Z87.828 Personal history of other (healed) physical injury and trauma; G89.4 Chronic pain syndrome; G62.9 Polyneuropathy, unspecified
CPT/HCPCS: 36415; 80053; 81001; 85025; 85610; 99223; 99239

== ENCOUNTER 2017-10-21 10:07 | Outpatient (CLI) | END 2017-10-21 10:08 | disposition home or self-care (01) | LOC: RHC-LAB 10:07 | PROVIDERS: ATTEND Emergency Medicine | DX: Z51.81 Encounter for therapeutic drug level monitoring (principal); Z79.01 Long term (current) use of anticoagulants | CPT/HCPCS: 36415; 85610 ==

== ENCOUNTER 2017-11-05 10:00 | Outpatient (RCR) | END 2017-11-11 23:59 | LOC: NEWBEG 10:00 | PROVIDERS: ATTEND Psychiatry & Neurology Psychiatry | DX: F33.2 Major depressive disorder, recurrent severe without psychotic features (principal); F41.0 Panic disorder [episodic paroxysmal anxiety]; F41.1 Generalized anxiety disorder; F60.9 Personality disorder, unspecified | CPT/HCPCS: 90792; 90853; 99213 ==

== ENCOUNTER 2017-12-08 10:00 | Outpatient (RCR) | END 2017-12-11 23:59 | LOC: NEWBEG 10:00 | PROVIDERS: ATTEND Psychiatry & Neurology Psychiatry | DX: F33.2 Major depressive disorder, recurrent severe without psychotic features (principal); F41.1 Generalized anxiety disorder; F41.0 Panic disorder [episodic paroxysmal anxiety]; F60.9 Personality disorder, unspecified | CPT/HCPCS: 90853; 99213 ==

== ENCOUNTER 2017-12-17 08:49 | Outpatient (CLI) | payer OTHER | END 2017-12-17 08:50 | disposition home or self-care (01) | LOC: RHC-LAB 08:49 | PROVIDERS: ATTEND Emergency Medicine | DX: R35.0 Frequency of micturition (principal); Z51.81 Encounter for therapeutic drug level monitoring; Z79.01 Long term (current) use of anticoagulants | CPT/HCPCS: 81001; 87086 ==

== ENCOUNTER 2017-12-29 13:38 | Outpatient (CLI) | END 2017-12-29 13:39 | disposition home or self-care (01) | LOC: RHC-LAB 13:38 | PROVIDERS: ATTEND Emergency Medicine | DX: Z51.81 Encounter for therapeutic drug level monitoring (principal); Z79.01 Long term (current) use of anticoagulants | CPT/HCPCS: 36415; 85610 ==

== ENCOUNTER 2018-01-03 11:44 | Outpatient (CLI) | END 2018-01-03 11:45 | disposition home or self-care (01) | LOC: RHC-LAB 11:44 | PROVIDERS: ATTEND Emergency Medicine | DX: Z51.81 Encounter for therapeutic drug level monitoring (principal); Z79.01 Long term (current) use of anticoagulants | CPT/HCPCS: 36415; 85610 ==

== ENCOUNTER 2018-01-10 10:00 | Outpatient (RCR) | END 2018-01-11 23:59 | LOC: NEWBEG 10:00 | PROVIDERS: ATTEND Psychiatry & Neurology Psychiatry | DX: F33.2 Major depressive disorder, recurrent severe without psychotic features (principal); F41.1 Generalized anxiety disorder; F41.0 Panic disorder [episodic paroxysmal anxiety]; F60.9 Personality disorder, unspecified | CPT/HCPCS: 90853; 99213 ==

== ENCOUNTER 2018-01-13 12:12 | Outpatient (CLI) | END 2018-01-13 12:13 | disposition home or self-care (01) | LOC: RHC-LAB 12:12 | PROVIDERS: ATTEND Emergency Medicine | DX: Z86.718 Personal history of other venous thrombosis and embolism (principal) | CPT/HCPCS: 36415; 85610 ==

== ENCOUNTER 2018-01-20 09:31 | Outpatient (CLI) | END 2018-01-20 09:32 | LOC: RHC-LAB 09:31 | PROVIDERS: ATTEND Emergency Medicine | DX: Z86.718 Personal history of other venous thrombosis and embolism (principal) | CPT/HCPCS: 36415; 85610 ==

== ENCOUNTER 2018-01-20 17:24 | Inpatient (IN) ==
[2018-01-20] MEDS ORDERED: TYLENOL PO PRN (17:27)
[2018-01-20] MEDS ORDERED: VITAMIN K IM STA (17:28)
[2018-01-20 17:52] VITALS: BMI 23.2
[2018-01-20] MEDS: SODIUM CHLORIDE 1,000 ML IV SCH (18:23)
[2018-01-20] MEDS ORDERED: PERCOCET 10-325 PO PRN (18:25)
[2018-01-20] MEDS ORDERED: NON-FORMULARY MEDICATION (Meclizine Hcl [Meclizine Hcl] 12.5 MG) PO SCH (21:00)
[2018-01-20] MEDS ORDERED: NON-FORMULARY MEDICATION (Ferrous Sulfate [Ferrous Sulfate] 325 MG) PO SCH (21:00)
[2018-01-20] MEDS ORDERED: QUETIAPINE PO SCH (21:00)
[2018-01-20] MEDS ORDERED: NON-FORMULARY MEDICATION (Gabapentin [Gabapentin] 600 MG) PO SCH (21:00)
[2018-01-20] MEDS ORDERED: OXYCODONE HCL 10 MG PO SCH (21:00)
[2018-01-20] MEDS ORDERED: TRAZODONE 200 MG PO SCH (21:00)
[2018-01-21] MEDS: ANTIVERT PO SCH ×4 (05:01→21:10)
[2018-01-21] MEDS: ATROVENT HFA IH SCH ×4 (05:01→21:09)
[2018-01-21] MEDS: FERROUS SULFATE PO SCH ×3 (05:02→21:11)
[2018-01-21] MEDS: DESYREL PO SCH ×2 (05:02→21:11)
[2018-01-21] MEDS: NON-FORMULARY MEDICATION (Melatonin [Melatonin] 10 MG) PO SCH ×2 (05:02→21:19)
[2018-01-21] MEDS: OXYCONTIN PO SCH ×3 (05:03→21:10)
[2018-01-21] MEDS: PLETAL PO SCH ×3 (05:03→21:10)
[2018-01-21] MEDS: NEURONTIN PO SCH ×3 (05:03→21:12)
[2018-01-21] MEDS: SEROQUEL PO SCH ×2 (05:04→21:09)
[2018-01-21] MEDS: ZANAFLEX PO SCH ×4 (05:04→21:11)
[2018-01-21] MEDS: CARAFATE PO SCH ×3 (05:36→16:48)
[2018-01-21] MEDS: PRILOSEC PO SCH (05:37)
[2018-01-21] MEDS: SODIUM CHLORIDE 1,000 ML IV SCH ×2 (06:51→21:20)
[2018-01-21] MEDS ORDERED: RAMIPRIL 5 MG PO SCH (09:00)
[2018-01-21] MEDS ORDERED: FOLIC ACID PO SCH (09:00)
[2018-01-21] MEDS ORDERED: NON-FORMULARY MEDICATION (Ondansetron Hcl [Zofran] 8 MG) PO SCH (09:00)
[2018-01-21] MEDS ORDERED: NON-FORMULARY MEDICATION (Sertraline Hcl [Zoloft] 100 MG) PO SCH (09:00)
[2018-01-21] MEDS ORDERED: HYDROXYCHLOROQUINE SULFATE 200 MG PO SCH (09:00)
[2018-01-21] MEDS ORDERED: NON-FORMULARY MEDICATION (Omeprazole Magnesium [Prilosec Otc] 20 MG) PO SCH (09:00)
[2018-01-21] MEDS ORDERED: NON-FORMULARY MEDICATION (Methylphenidate Hcl [Ritalin] 20 MG) PO SCH (09:00)
[2018-01-21] MEDS: PLAQUENIL PO SCH (09:41)
[2018-01-21] MEDS: ALTACE PO SCH (09:42)
[2018-01-21] MEDS: ZOFRAN TAB PO SCH (09:43)
[2018-01-21] MEDS: ZOLOFT PO SCH ×2 (09:43→10:35)
[2018-01-21] MEDS: FOLIC ACID PO SCH (09:44)
--- NOTE | 2018-01-21 10:13 | DI ---
EXAM: Two views of the chest. History: Short of breath Comparison: Chest radiograph 01/12/2017 Findings: Heart size is normal. No focal consolidation. No appreciable pleural fluid and no pneumo thorax. Atherosclerotic vascular calcifications. No acute osseous abnormalities. Impression: No acute cardiopulmonary process
[2018-01-21] MEDS: RITALIN PO SCH (10:33)
--- NOTE | 2018-01-21 14:31 | ECHO2D ---
Date of Exam: 01/21/18 Ordering Physician: DR. TORY SMALLS Room #: 109 Reason for Echo: HYPERTENSION, SOB, SYSTOLIC MURMUR M-Mode Normal Adult Results LV Dimensions Normal Adult Results AoV Opening excursions >1.6 1.1 LVEDD-base- 3.5-5.8 4.6 Ao root dimensions 2.0-3.7 3.4 LVESD-base- 3.1-4.6 L. Atrium dimensions 1.9-3.8 3.9 Post. Wall thickness 0.8-1.1 1.0 IV septum (thickness) 0.7-1.2 1.2 Post. Wall excursion 0.72-1.3 NORMAL Septal motion NORMAL Systolic motion R. Ventricular cavity 1.5-2.0 NORMAL LVEF 60% 64% Paradoxical septal wall motion NORMAL 2-D : 2-D M Mode Echocardiogram was performed using apical four chamber and left parasternal long and short axis views. Mitral and tricuspid valves appear to be normal. Calcific aortic stenosis. Contractility of the left ventricle seems to be normal, so is the cavity size. Left atrial cavity size and aortic root appear to be normal. There is no pericardial effusion. There is no thrombus noted in the left ventricular or left aortic cavity. No mitral valve prolapse noted. M-MODE: MV: CALCIFIC AV: CALCIFIC AORTIC VALVES WITH MILD TO MODERATE AORTIC STENOSIS, VALVE ARE 1.49CM2 TV: NORMAL PV: CHAMBER SIZE: NORMAL WALL MOTION: NORMAL PERICARDIUM: NORMAL INTERPRETATION: 1. LEFT VENTRICULAR CONTRACTILITY--NORMAL 2. CALCIFIC AORTIC STENOSIS--MILD TO MODERATE VALVE AREA 1.4 CM2 3. CALCIFIC MITRAL VALVE ANNULUS 4. RECOMMEND: COMPLETE ECHO WITH DOPPLER MTDD
[2018-01-21] MEDS ORDERED: PRAVACHOL PO SCH (17:00)
[2018-01-22] MEDS: CARAFATE PO SCH ×2 (05:36→11:32)
[2018-01-22] MEDS: PRILOSEC PO SCH (05:37)
[2018-01-22] MEDS: PLETAL PO SCH (08:42)
[2018-01-22] MEDS: ZOFRAN TAB PO SCH (08:42)
[2018-01-22] MEDS: ALTACE PO SCH (08:42)
[2018-01-22] MEDS: NEURONTIN PO SCH (08:43)
[2018-01-22] MEDS: ANTIVERT PO SCH (08:43)
[2018-01-22] MEDS: PLAQUENIL PO SCH (08:43)
[2018-01-22] MEDS: FERROUS SULFATE PO SCH (08:44)
[2018-01-22] MEDS: ATROVENT HFA IH SCH (08:44)
[2018-01-22] MEDS: ZANAFLEX PO SCH (08:44)
[2018-01-22] MEDS: ZOLOFT PO SCH ×2 (08:45→08:46)
[2018-01-22] MEDS: FOLIC ACID PO SCH (08:45)
[2018-01-22] MEDS: OXYCONTIN PO SCH (09:02)
[2018-01-22] MEDS: RITALIN PO SCH (09:02)
[2018-01-22] MEDS: SODIUM CHLORIDE 1,000 ML IV SCH (09:45)
[2018-01-22 10:54] VITALS: BP 125/69; TEMP 98.7
[2018-01-22] MEDS ORDERED: COUMADIN PO STA (13:35)
--- NOTE | 2018-01-22 14:10 | PCM.HOSP ---
- Initial Hospital Care [id number] 70 Minutes Bedside ([id number]): 01/20 - Subsequent Care [id number] 35 Minutes per Day ([id number]): 01/21 - Hospital Discharge [id number] More than 30 Minutes ([id number]): 01/22
--- NOTE | 2018-01-26 14:32 | HP ---
DATE OF SERVICE: 01/20/18 CHIEF COMPLAINT: Abnormal blood work. The patient's INR was 7.8. HISTORY OF PRESENT ILLNESS: This is a 62-year-old female who takes Coumadin for hypercoagulable state and DVT. PT/INR was elevated, INR 7.84. At that time, we tried to order medication which was not available at the pharmacy. Given risk of her age and risk of recurrent falls, risk for bleeding, the patient was admitted to the hospital for Coumadin coagulopathy for treatment. REVIEW OF SYSTEMS: CONSTITUTIONAL: Weakness, tiredness. No fever, no chills. HEENT: Normal. ENDOCRINE: No weight gain; no weight loss. CVS: No chest pain. No PND, no orthopnea. Shortness of breath. No PND, no orthopnea. RESPIRATORY: Cough and congestion. No hemoptysis. GI: No nausea, no vomiting. No abdominal pain. No melena. : No hematuria. No polyuria. MUSCULOSKELETAL: Osoteoarthritis, DJD spine. PSYCHIATRIC: Depression and anxiety. No suicidal thoughts. No homicidal thoughts. SKIN: Intact, no open lesions. PAST MEDICAL HISTORY: Hypertension Hypercholesterolemia Seizure disorder- none for 10 years Asthmatic bronchitis Osteoarthritis DJD spine Depression Anxiety Lupus History of DVT Infectious mononucleosis Clotting problem PAST SURGICAL HISTORY: Ankle fusion Appendectomy Total hip Tracheostomy PERSONAL HISTORY: The patient does not smoke or drink. She lives alone. She smokes one pack a day. FAMILY HISTORY: Significant for heart problem and diabetes. MEDICATIONS: (HOME) Folic Acid Pravastatin Percocet Melatonin Plaquenil Zofran Gabapentin Ritalin Seroquel Trazodone Sertraline Zoloft Meclizine Neurontin Duoneb Tizanidine Ferrous Sulfate Oxycodone Sucralfate Cilostazol Ramipril Coumadin Omeprazole ALLERGIES: CODEINE, DEMEROL AND METOCLOPRAMIDE PHYSICAL EXAMINATION: V/S: BP 88/55, respiratory rate 18, heart rate 94, temperature 98.2, saturation 94. HEENT: Atraumatic, normocephalic. No scleral icterus. Mucosa dry. NECK: Supple. No JVD, no bruit. No lymphadenopathy. No thyromegaly. HEART: S1, S2 normal. Systolic murmur positive. No cyanosis or clubbing. No ascites. LUNGS: Clear to auscultation. No rales or rhonchi. ABDOMEN: Soft, nontender. Bowel sounds are active. No CVA tenderness. No rigidity or guarding. EXTREMITIES: No pedal edema. No cyanosis or clubbing MUSCULOSKELETAL: Normal joints, no swelling. NEUROLOGIC: The patient is awake and alert. SKIN: Intact; no open lesions. LYMPHATIC: No lymph nodes palpable. LABS: Sodium 138, potassium 3.6, chloride 107, bicarb 23, BUN 10, creatinine 0.64, glucose 120. White count 4.11, hemoglobin 11.1, hematocrit 32.0, platelet count 216. ASSESSMENT: 1. COUMADIN COAGULOPATHY 2. HYPERTENSION 3. DYSLIPIDEMIA 4. OSTEOARTHRITIS 5. DJD SPINE 6. HISTORY OF DVT ON LONG TERM ANTICOAGULATION 7. HYPERCOAGULABLE STATE PLAN: 1. Admit the patient to the regular floor 2. Vitamin K 10 mg IM 3. Continue the rest of the home medications 4. Hold Coumadin TIME SPENT: MORE THAN 70 minutes MTDD
--- NOTE | 2018-01-26 14:39 | PN ---
DATE OF SERVICE: 01/21/18 SUBJECTIVE: The patient is admitted for Coumadin coagulopathy. The patient complains of cough and congestion with shortness of breath, exertional and rest makes it better. REVIEW OF SYSTEMS: CONSTITUTIONAL: No fever, no chills. HEENT: Normal. ENDOCRINE: No weight gain, no weight loss. CVS: No angina symptoms. No CHF symptoms. No palpitations. No atypical chest pain for CAD. Shortness of breath on exertion. No PND, no orthopnea. RESPIRATORY: Cough and congestion. No hemoptysis. GI: No nausea, no vomiting. No abdominal pain. : No hematuria. No polyuria. MUSCULOSKELETAL: No joint swelling. PSYCHIATRIC: Not anxious. No depression. No suicidal thoughts. No homicidal thoughts. SKIN: Intact. No rash. PHYSICAL EXAMINATION: V/S: BP 99/58, respiratory rate 20, heart rate 78, temperature 97.9, saturation 97. HEENT: Normocephalic, atraumatic. Mucosa dry. NECK: Supple. No JVD, no carotid bruit. No lymphadenopathy. LUNGS: Clear to auscultation. No rales or rhonchi. HEART: S1, S2 normal. No S3. Systolic murmur positive. ABDOMEN: Soft, nontender. Bowel sounds active. No rigidity. No rebound or guarding. No CVA tenderness. EXTREMITIES: No cyanosis, clubbing or pedal edema. MUSCULOSKELETAL: No joint swelling. NEUROLOGIC: Awake, alert. No focal deficit. LYMPHATIC: No lymph nodes palpable. SKIN: Intact. LABS: White count 3.65, hemoglobin 11.4, hematocrit 33.1, platelet count 236. Sodium 142, potassium 4.0, chloride 111, bicarb 24, BUN 9, creatinine 0.61, glucose 106. ASSESSMENT: 1. COUMADIN COAGULOPATHY 3.69 TODAY 2. HYPERCOAGULABLE STATE 3. HISTORY OF DVT 4. OSTEOARTHRITIS 5. DJD SPINE 6. SCLEROTIC AORTIC WALL 7. DEPRESSION 8. ANXIETY PLAN: 1. We will get echocardiogram 2. Chest x-ray 3. BNP 4. Continue to hold Coumadin 5. PT/INR daily TIME SPENT: More than 35 minutes MTDD
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
== END 2018-01-22 15:03 | disposition home or self-care (01) | DRG 204 ==
LOC: MEDSURG A 17:24
PROVIDERS: ADMIT Emergency Medicine; ATTEND Emergency Medicine
DX: R06.02 Shortness of breath (principal); D68.59 Other primary thrombophilia; I10 Essential (primary) hypertension; D64.9 Anemia, unspecified; J44.9 Chronic obstructive pulmonary disease, unspecified; I35.0 Nonrheumatic aortic (valve) stenosis; I51.7 Cardiomegaly; M19.90 Unspecified osteoarthritis, unspecified site; M47.9 Spondylosis, unspecified; M35.00 Sjogren syndrome, unspecified; F41.9 Anxiety disorder, unspecified; F32.9 Major depressive disorder, single episode, unspecified; E78.5 Hyperlipidemia, unspecified; Z86.718 Personal history of other venous thrombosis and embolism; Z79.01 Long term (current) use of anticoagulants
CPT/HCPCS: 36415; 80053; 81001; 83880; 85025; 85610

== ENCOUNTER 2018-01-25 10:12 | Outpatient (CLI) | END 2018-01-25 10:13 | disposition home or self-care (01) | LOC: RHC-LAB 10:12 | PROVIDERS: ATTEND Emergency Medicine | DX: Z86.718 Personal history of other venous thrombosis and embolism (principal) | CPT/HCPCS: 36415; 85610 ==

== ENCOUNTER 2018-02-04 10:00 | Outpatient (RCR) | END 2018-02-11 23:59 | LOC: NEWBEG 10:00 | PROVIDERS: ATTEND Psychiatry & Neurology Psychiatry | DX: F33.2 Major depressive disorder, recurrent severe without psychotic features (principal); F41.1 Generalized anxiety disorder; F41.0 Panic disorder [episodic paroxysmal anxiety]; F60.9 Personality disorder, unspecified | CPT/HCPCS: 90853; 99213 ==

== ENCOUNTER 2018-02-08 09:10 | Outpatient (CLI) | payer OTHER | END 2018-02-08 09:11 | disposition home or self-care (01) | LOC: RHC-LAB 09:10 | PROVIDERS: ATTEND Emergency Medicine | DX: Z86.718 Personal history of other venous thrombosis and embolism (principal) | CPT/HCPCS: 36415; 85610 ==

== ENCOUNTER 2018-02-22 09:11 | Outpatient (CLI) | END 2018-02-22 09:12 | disposition home or self-care (01) | LOC: RHC-LAB 09:11 | PROVIDERS: ATTEND Nurse Practitioner Family | DX: Z86.718 Personal history of other venous thrombosis and embolism (principal) | CPT/HCPCS: 36415; 85610 ==

== ENCOUNTER 2018-03-11 09:39 | Outpatient (CLI) | payer OTHER | END 2018-03-11 09:40 | disposition home or self-care (01) | LOC: RHC-LAB 09:39 | PROVIDERS: ATTEND Nurse Practitioner Family | DX: Z51.81 Encounter for therapeutic drug level monitoring (principal); Z79.01 Long term (current) use of anticoagulants | CPT/HCPCS: 36415; 85610 ==

== ENCOUNTER 2018-03-23 08:04 | Outpatient (CLI) | payer OTHER | END 2018-03-23 08:05 | disposition home or self-care (01) | LOC: LAB 08:04 | PROVIDERS: ATTEND Emergency Medicine | DX: Z86.718 Personal history of other venous thrombosis and embolism (principal) | CPT/HCPCS: 36415; 85610 ==

== ENCOUNTER 2018-06-23 10:26 | Outpatient (CLI) | payer OTHER | END 2018-06-23 10:27 | disposition home or self-care (01) | LOC: LAB 10:26 | PROVIDERS: ATTEND Nurse Practitioner Family | DX: Z51.81 Encounter for therapeutic drug level monitoring (principal); Z79.01 Long term (current) use of anticoagulants | CPT/HCPCS: 36415; 85610 ==

== ENCOUNTER 2018-06-30 07:41 | Outpatient (CLI) | END 2018-06-30 07:42 | disposition home or self-care (01) | LOC: LAB 07:41 | PROVIDERS: ATTEND Nurse Practitioner Family | DX: Z51.81 Encounter for therapeutic drug level monitoring (principal); Z79.01 Long term (current) use of anticoagulants | CPT/HCPCS: 36415; 85610 ==

== ENCOUNTER 2018-07-07 06:15 | Outpatient (CLI) | payer OTHER | END 2018-07-07 06:16 | disposition home or self-care (01) | LOC: LAB 06:15 | PROVIDERS: ATTEND Nurse Practitioner Family | DX: Z51.81 Encounter for therapeutic drug level monitoring (principal); Z79.01 Long term (current) use of anticoagulants | CPT/HCPCS: 36415; 85610 ==

== ENCOUNTER 2018-08-17 10:01 | Outpatient (CLI) | payer OTHER | END 2018-08-17 10:02 | disposition home or self-care (01) | LOC: RHC-LAB 10:01 → FCC-LAB 10:02 | PROVIDERS: ATTEND Family Medicine | DX: Z51.81 Encounter for therapeutic drug level monitoring (principal); Z79.01 Long term (current) use of anticoagulants | CPT/HCPCS: 36415; 85610 ==

== ENCOUNTER 2018-09-03 01:11 | Emergency (ER) ==
[2018-09-03 01:27] VITALS: BP 123/76; TEMP 98.9; BMI 24.3
[2018-09-03] MEDS ORDERED: LEVAQUIN PO STA (01:58)
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
== END 2018-09-03 02:03 | disposition home or self-care (01) ==
LOC: ED 01:11
DX: N39.0 Urinary tract infection, site not specified (principal); F17.210 Nicotine dependence, cigarettes, uncomplicated
CPT/HCPCS: 81001; 87086; 87186; 99283

== ENCOUNTER 2018-09-11 08:22 | Emergency (ER) | payer OTHER ==
[2018-09-11 08:25] VITALS: BP 118/73; TEMP 98.1; BMI 25.2
--- NOTE | 2018-09-11 09:14 | CT ---
EXAM: CT scan of the head without contrast HISTORY: Dizzy TECHNIQUE: Helical imaging of the head was performed without contrast. 5 mm thin axial images and c oronal and sagittal images were provided for interpretation. Comparison 10/14/2017 CT scan of the head. FINDINGS: The lateral ventricles and cortical sulci are prominent from atrophy. No acute hemorrhage s are seen. There is no mass effect. Basal cisterns are patent. Low density changes are seen withi n the supratentorial white matter. The paranasal sinuses and mastoid air cells are clear. The kirill rium and extracranial soft tissues are normal. IMPRESSION: No acute intracranial abnormalities are seen. Mild chronic small vessel ischemic changes seen within the supratentorial white matter.
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
== END 2018-09-11 10:39 | disposition home or self-care (01) ==
LOC: ED 08:22
DX: R42 Dizziness and giddiness (principal); E78.5 Hyperlipidemia, unspecified; M32.9 Systemic lupus erythematosus, unspecified; F17.210 Nicotine dependence, cigarettes, uncomplicated; Z79.899 Other long term (current) drug therapy; R11.0 Nausea
CPT/HCPCS: 36415; 80053; 85025; 93005; 93010; 99283

== ENCOUNTER 2018-10-10 08:08 | Outpatient (CLI) | END 2018-10-10 08:09 | disposition home or self-care (01) | LOC: RHC-LAB 08:08 → FCC-LAB 08:09 | PROVIDERS: ATTEND Family Medicine | DX: Z51.81 Encounter for therapeutic drug level monitoring (principal); Z79.01 Long term (current) use of anticoagulants | CPT/HCPCS: 36415; 85610 ==

== ENCOUNTER 2018-10-17 10:05 | Outpatient (CLI) | payer OTHER | END 2018-10-17 10:06 | disposition home or self-care (01) | LOC: RHC-LAB 10:05 → FCC-LAB 10:06 | PROVIDERS: ATTEND Family Medicine | DX: Z78.9 Other specified health status (principal) | CPT/HCPCS: 36415; 82728; 83540; 83550 ==

== ENCOUNTER 2019-02-01 07:59 | Outpatient (CLI) | END 2019-02-01 08:00 | disposition home or self-care (01) | LOC: RHC-LAB 07:59 → FCC-LAB 08:00 | PROVIDERS: ATTEND Family Medicine | DX: R19.7 Diarrhea, unspecified (principal) | CPT/HCPCS: 87493 ==

== ENCOUNTER 2019-02-17 17:20 | Outpatient (CLI) ==
[2019-02-17 17:37] VITALS: BMI 23.0
== END 2019-02-17 17:26 | disposition critical access hospital (66) ==
LOC: AMBL 17:20
PROVIDERS: ATTEND Emergency Medicine
DX: R41.82 Altered mental status, unspecified (principal); R11.0 Nausea

== ENCOUNTER 2019-02-18 07:25 | Outpatient (CLI) ==
[2019-02-17 17:37] VITALS: BMI 23.0
== END 2019-02-18 07:45 | disposition short-term general hospital (02) ==
LOC: AMBL 07:25
PROVIDERS: ATTEND Internal Medicine
DX: R41.82 Altered mental status, unspecified (principal); R40.2411 Glasgow coma scale score 13-15, in the field [EMT or ambulance]